=== PATIENT | male | born 1940 | race Caucasian/White ===

== ENCOUNTER 2024-04-11 18:19 | Inpatient (IN) | payer MEDICARE, OTHER, SELFPAY ==
[2024-04-11 12:28] LABS: % Basophils 0.6 % (0-2); % Eosinophils 0.7 % (0-6); % Immature Granulocytes 0.3 % (0-0.5); % Lymphocytes 11.6 % (20.5-51.1); % Monocytes 6.1 % (1.7-9.3); % Neutrophils 80.7 % (42.2-75.2); Absolute Basophils 0.1 10^3/uL (0-0.2); Absolute Eosinophils 0.1 10^3/uL (0-0.7); Absolute Lymphocytes 1.2 10^3/uL (1.2-3.4); Absolute Monocytes 0.6 10^3/uL (0.1-0.6); Absolute Neutrophils 8.2 10^3/uL (1.4-6.5); Hematocrit 36.2 % (39.0-52.0); Hemoglobin 12.3 g/dL (13.0-18.0); Mean Corpuscular Hgb 32.1 pg (27.0-31.0); Mean Corpuscular Volume 94.5 fL (80.0-94.0); Mean Platelet Volume 9.8 fL (7.4-10.4); Nucleated Red Blood Cells % 0 % (-); Platelet Count 243 10^3/uL (130-400); Red Blood Cell Count 3.83 10^6/uL (4.70-6.10); Red Cell Dist. Width 12.1 % (11.5-14.5); White Blood Cell Count 10.2 10^3/uL (4.8-10.8)
[2024-04-11 12:44] LABS: ALT (SGPT) 13 U/L (0-50); AST (SGOT) 22 U/L (17-59); Albumin 4.1 g/dl (3.5-5.0); Alkaline Phosphatase 105 U/L (38-126); Blood Urea Nitrogen 29 mg/dl (9-20); Calcium 9.3 mg/dl (8.4-10.2); Carbon Dioxide 25 mmol/L (22-30); Chloride 103 mmol/L (98-107); Glucose 220 mg/dl (70-99); Potassium 4.4 mmol/L (3.5-5.1); Sodium 137 mmol/L (135-145); Total Bilirubin 0.7 mg/dl (0.2-1.3); Total Protein 6.2 g/dl (6.3-8.2); eGFR > 60.00
[2024-04-11 12:59] LABS: Troponin I 0.398 ng/ml
[2024-04-11 13:44] VITALS: BP 120/74
[2024-04-11 13:52] VITALS: BMI 22.2
--- NOTE | 2024-04-11 15:05 | ED.GENMED ---
History of Present Illness
General
Chief Complaint: Chest Pain
Source: patient
Exam Limitations: none
Time Seen by Provider: 04/11/24 13:34
Nursing documentation reviewed up to this point in time: agreed with
History of Present Illness
History of Present Illness:
84-year-old male presenting to the emergency department today with concerns of chest pain off and on over the past week otherwise has has some associated nausea heavy sweating. Symptoms worsened today and has been persistent. Does have a long
history of heart disease has had a CABG and multiple stents in the past. Denies any recent trauma surgery immobilization, blood clots.
Review of Systems
Review of Systems
Allergies reviewed?: Yes
All Other Systems: ROS reviewed and negative except as documented in HPI and ROS
Phy Exam
Physical Exam
Physical Exam:
GENERAL: Alert , in no apparent distress
EYE: pupils equal and reactive
NECK: Supple, no significant adenopathy.
ENT: o/p clr, mmm.
CARDIAC: Regular rate and rhythm .
LUNGS: Clear breath sounds bilaterally, no acute respiratory distress, no wheezes/rales/rhonchi
ABDOMEN: Soft, without focal tenderness, no r/g, no cvat
NEUROLOGICAL: Alert and oriented, no focal neuro deficits
SKIN: Warm and dry, skin intact.
MUSCULOSKELETAL: No edema, well perfused.
PSYCH: Normal and appropriate interaction.
Scores
Heart Score for Chest Pain Patients
STEMI patient?: Not applicable
Course
Orders/Labs/Results
Orders:
Orders
04/11/24 11:58
Electrocardiogram (*1) Urgent
Reason for Study: Chest Pain
EKG- Treatment ONCE
04/11/24 12:07
CXR2 [CR Chest - 2 Views ] Urgent
Comment:
Reason For Exam: chest pain
04/11/24 12:13
Complete Blood Count/With Diff Urgent
Comprehensive Metabolic Panel Urgent
Troponin I Urgent
04/11/24 13:04
Electrocardiogram (*1) Urgent
Reason for Study: Chest Pain
EKG- Treatment ONCE
04/11/24 13:58
Aspirin 325 mg PO NOW STA
04/11/24 14:29
Troponin I Urgent
04/11/24 14:41
Heparin 4,000 units IV NOW STA
Nursing to Place Non Medication Order As Directed
Physician Order: PTT 6 hours after initial start of Heparin infusion
04/11/24 14:45
Heparin 93177 Units/250 ml 25,000 units in 250 ml IV PER PROTOCOL
Weight to be used for heparin protocol in kilograms (kg):: 72.212
Protocol:: Cardiac Tx/Acute Coronary
PTT Goal Range to be used:: PTT 73 to 111 seconds
Order type:: Initial
INITIAL Infusion Dose (UNITS/KG/hr) & then follow protocol:: 15 units/kg/hr
Infusion Dose in UNITS/hr & then follow protocol (UNITS/hr):: 1,100
INFUSION RATE in mL/hr & then follow protocol (mL/hr):: 11
PTT less than or equal to 64 seconds:: Increase rate by 200 units/hr (+ 2 mL/hr)
PTT 64.1 to 72.9 seconds:: Increase rate by 100 units/hr (+ 1 mL/hr)
PTT 73 to 111 seconds:: Target Range. No change in rate.
PTT 111.1 to 130.9 seconds:: Decrease rate by 100 units/hr (- 1 mL/hr)
PTT 131 to 199.9 seconds:: HOLD for 1 hr. Then decrease rate by 200 units/hr (- 2 mL/hr)
PTT greater than or equal to 200 seconds:: HOLD for 2 hrs & Notify Provider. Then decrease by 200 units/hr (-
2 mL/hr)
Lab follow-up:: Each change, PTT q6h until 2 consecutive are therapeutic. Then PTT
daily.
04/11/24 15:14
Nitroglycerin Sublingual [Nitrostat (Sublingual)] 0.4 mg SL [id number] PRN
04/11/24 15:31
PTT Urgent
Comment: Obtain baseline before beginning heparin infusion if not already collected
04/11/24 15:45
Echo 2D MMode Color/Doppler [Echo 2D MMode Color/Doppler] Stat
Reason for Study: Chest pain, abnormal trop
Cardiology Consult: Marcos Cao
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
04/11/24 16:30
Nitroglycerin 100 mg/250 ml [Nitroglycerin Premix] 100 mg in 250 ml IV PER PROTOCOL
Initial dose in mcg/min, then titrate:: 5
Titrate to keep:: Chest Pain Free
Titrate by mcg/min:: 5 mcg/min, may increase by 10 mcg/min if dose > 20 mcg/min
Frequency of titrations (minutes):: every 3-5 minutes
Maximum dose in mcg/min:: 200
Begin to taper infusion when:: Remained at goal for 2hrs
Taper by mcg/min:: 5 mcg/min
Frequency of taper (minutes) if patient maintains goal:: 30
Taper to off?: Yes
If infusion off & no longer maintaining goal:: Contact Provider
Abnormal Lab Results
04/11/24 04/11/24
12:13 14:29
RBC 3.83 L 10^6/uL
(4.70-6.10)
Hgb 12.3 L g/dL
(13.0-18.0)
Hct 36.2 L %
(39.0-52.0)
MCV 94.5 H fL
(80.0-94.0)
MCH 32.1 H pg
(27.0-31.0)
Absolute Neuts (auto) 8.2 H 10^3/uL
(1.4-6.5)
Neutrophils % 80.7 H %
(42.2-75.2)
Lymphocytes % 11.6 L %
(20.5-51.1)
BUN 29 H mg/dl
(9-20)
Glucose 220 H mg/dl
(70-99)
Troponin I 0.398 H* ng/ml 1.570 H* D ng/ml
Total Protein 6.2 L g/dl
(6.3-8.2)
04/11/24 12:13
04/11/24 12:13
Vital Signs
Initial and Last Documented VS:
Initial Vital Signs
Temp Pulse Resp Pulse Ox
98.1 F 71 16 99
04/11/24 12:04 04/11/24 12:04 04/11/24 12:04 04/11/24 12:04
Last Documented Vital Signs
Temp Pulse Resp BP Pulse Ox
98.1 F 63 10 120/74 99
04/11/24 12:04 04/11/24 13:45 04/11/24 13:45 04/11/24 13:44 04/11/24 12:04
MDM/Problems Addressed
MDM/Problems Addressed:
84-year-old male presenting to the emergency department today with concerns of chest pain worsened today off and on over the past week. Does have a long history of heart disease. On arrival EKG without specific emergent findings but troponin
elevated to 0.398, cardiology immediately consulted after review of the case. Repeated Trope 1.57. Started on heparin. Additionally given dose of nitro. He claims that he seems to have resolution of symptoms after receiving a dose of nitro.
Patient then seen by interventional cardiology requesting nitro drip. This was ordered and will be started.
*Critical Care Note
Total Time (30-74mins, 75-104mins- exclusive of procedures): Not Applicable
ED Attending Note
-
Portions of this chart may have been created with voice recognition software.� Occasional wrong word or��sound alike� substitutions may have occurred due to the inherent limitations of voice recognition software.
Discharge Plan
Departure
Patient Disposition: Admit
Date of Disposition: 04/11/24
Time of Disposition: 16:21
Admit to: IMU
Admit to doctor: Bella
Presentation/result/management discussed w/ accepting MD/DO: Hospitalist
Patient with high blood pressure during this ER visit?: No
Condition: Fair
Covid-19: Not Applicable
Discharge Problem:
Non-ST elevation [place] (NSTEMI)
Prescriptions:
No Action
losartan 50 mg Tablet
50 mg PO BID
metformin 500 mg Tablet
500 mg PO QPM
bicalutamide 50 mg Tablet
50 mg PO HS
donepezil 10 mg Tablet
10 mg PO HS
cyanocobalamin (vitamin B-12) 1,000 mcg Tablet
1,000 mcg PO DAILY
clopidogrel [Plavix] 75 mg Tablet
75 mg PO QPM
amlodipine [Norvasc] 5 mg Tablet
5 mg PO DAILY
allopurinol 100 mg Tablet
100 mg PO DAILY
aspirin 81 mg Tablet,Delayed Release (Dr/Ec)
81 mg PO DAILY
acetaminophen [Tylenol Extra Strength] 500 mg Tablet
1,000 mg PO DAILYPRN PRN (Reason: mild pain)
ascorbic acid (vitamin C) [Vitamin C] 500 mg Tablet
500 mg PO DAILY
naproxen sodium [Aleve] 220 mg Tablet
220 mg PO BIDPRN PRN (Reason: mild pain)
zolpidem [Ambien] 5 mg Tablet
2.5 mg PO HS
metoprolol succinate [Toprol XL] 25 mg Tablet Extended Release 24 Hr
25 mg PO BID
alfuzosin 10 mg Tablet Extended Release 24 Hr
10 mg PO HS
cholecalciferol (vitamin D3) [Vitamin D3] 25 mcg (1,000 unit) Tablet
25 mcg PO DAILY
omega 4-esu-dei-fish oil [Fish Oil] 1,000 (120-180) mg Capsule
1 cap PO DAILY
turmeric 400 mg Capsule
400 mg PO DAILY
Interventions
Interventions:
*Risk Screen - Suicide Last Done: 04/11/24 12:04
*Neglect/Abuse Screening Last Done: 04/11/24 12:04
ED- Cardiac Assessment Last Done: 04/11/24 15:00
Discharge Date and Time
Print Language: MARSHALLESE
[2024-04-11] MEDS: HEPARIN 4000 UNITS IV (15:09)
[2024-04-11] MEDS: ASPIRIN 325 MG PO (15:09)
[2024-04-11] MEDS: HEPARIN 25000 UNITS/250 ML IV (15:25)
--- NOTE | 2024-04-11 15:27 | CON.CAR ---
Addendum entered and electronically signed by Marcos Cao MD 04/11/24 17:56:
This is a 83-year-old gentleman with a past medical history notable for multiple coronary stents and history of coronary artery bypass grafting with reported CONTE-LAD and [id number]. He reports multiple stents by Dr. Devaguhn Crook and most
recent stenting by Dr. Jose Manuel Pittman. He has a reported history of a large abdominal and thoracic aortic aneurysm that is being followed at the [facility] and reported history of a pulmonary mass that is being followed at the
[facility]. (I spent approximately 1 hour looking through his old records on his medical portal and was able to obtain additional information as listed below). He has known carotid artery disease with prior TIA/CVA. Chronic back
discomfort.
He presents to [facility] for his first visit ever with a several week history of waxing and waning substernal chest tightness which became more persistent. He reports several days ago he noticed some discomfort when bringing the garbage
cans up from the street to his house. Today he noticed some symptoms at rest but became chest pain-free and is currently chest pain-free in the emergency room. His troponin was noted to be mildly elevated initially measuring 0.398 and increasing
to 1.570 ng/mL. The patient does know his history reasonably well but it is very difficult to get a linear story.
Cardiac and Pulmonary Records I was able to obtain
-10/06/2023: Ambulatory ECG 13 days, 17hrs. Sinus rhythm. No afib, PAC: 3.6% PVC: below 1%, Intermittent bundle branch,
-09/17/2023: CT angio chest/abdomen: Abdominal aortic aneurysm measuring up to 5.0 cm with moderate mural thrombus and multiple penetrating atherosclerotic ulcers in the thoracic aorta. Ascending aortic aneurysm measuring 4.6 and severe
atherosclerotic disease involving the left common iliac with up to 70% stenosis. There is right middle lobe groundglass nodular appearing mass
-09/17/2023: LIONEL: Right le.15, left le.07
-07/20/2023: Echo: [facility]: LV: Normal size and function. EF 60-65%. RV: Normal, LA: Normal, RA: Normal, MV: Mild MAC. No MR, AV: Mild sclerosis. No stenosis. No AI. TV: No TR, AO: Mildly dilated ascending aorta measuring 4.1 cm
-01/10/2023: Carotid ultrasound: 50-69% bilateral ICA right greater than left
-02/12/2020: PFTs: FEV1: 2.06 (71%, FVC: 2.69 (66%), T%, DLCO:'s 60%. Findings are consistent with moderate restriction with no significant obstructive pulmonary disease
Past Medical History:
-Coronary artery disease. Patient reports multiple coronary stents by Dr. Devaughn Crook and Jose Manuel knight at [place].
-History of coronary artery bypass surgery in 11/14/2006: CONTE-LAD, QFS-nlcyhfmo-TOM vs SVG-Diag and SVG-PDA (no records)
-Abdominal aortic aneurysm: Dr. Escalera at [facility]
-Ascending aortic aneurysm: Dr. Norman at [facility]
-FDG avid pulmonary nodule consistent with adenocarcinoma of the lung: Reasonably stable by CT imaging dating back to 11/04/2019 FDG uptake was less than blood pool suggestive of adenocarcinoma
-Carotid stenosis
-Diabetes
-Multiple back surgeries and chronic back discomfort
-Parkinson's disease
-Mixed hyperlipidemia with intolerance to statins in the past
-History of TIA/CVA
-Prostate cancer
-History of spontaneous pneumothoraces
-Diet-controlled diabetes
-Obstructive sleep apnea
Physical exam
GEN: AAO x 3. No acute distress. He is lying in bed comfortably and reading his book. He states that he has chronic back discomfort but no chest discomfort
HEENT: NC/AT, sclera are anicteric,
NECK: Supple. Normal JVP
LUNGS: Clear to bases bilaterally. No wheezing or rhonchi
CV: Regular rate and rhythm. 03/17 crescendo decrescendo murmur upper sternal border. Normal S1/S2.
ABD : Bruit. Bowel sounds present.
EXT: No CCE. DP AND PT pulses palpable bilaterally
NEURO: No focal neurologic deficits
RECOMMENDATIONS:
- Currently chest pain free
- Continue aspirin and clopidogrel
- Will trend serial troponin and obtain fasting lipids: He is currently not on statin therapy and reported muscle aches but may try Crestor 5 mg M/W/F plus ongoing medication
- Echocardiogram today give murmur of and to assess LVEF
- Awaiting records on pulmonary nodule and assessment of abdominal aorta to determine if any treatment is impending
- I reached out to [facility] to see if we can get images transferred to [place] as he will likely need coronary angiography predischarge. It would be nice to know prior anatomy
- I suspect he may need coronary angiography
.
(I spent 85-90 minutes obtaining and reviewing records from [place], [place], [place], and calling [place] to see if we could have images transferred).
Original Note:
Consultation
Consultation Request
Date/Time Consultation Requested: 04/11/2024
Date/Time Consultation Performed: 04/11/2024
Requesting Provider: Nicolas Celis PA-C
Performing Provider: Sonja Christianson PA-C for Dr. Cao
Reason for Consultation: Chest pain, abnormal troponin
Medical History
-
History of Present Illness:
Patient is an 83-year-old male with past medical history significant for CABG x 3 11/2006, multiple coronary interventions which he reports he has 10 or 11 stents with last intervention 3 or 4 years ago, hypertension, hyperlipidemia, diabetes, TIA,
prostate cancer with hormone therapy, pneumothorax, GERD, 'brain bleed after traumatic fall several years ago', DVT, AAA and recent diagnosis of lung cancer on PET scan who presents to [place] emergency department 04/11/2024 with complaints of
back and chest discomfort as well as shortness of breath. Patient followed with Dr. Peterson at [facility] but most recently with Dr. Buzz Quintanilla at [facility] for cardiology care as well as Dr. Bernabe Norman of CT surgery [place]
and Dr. Escalera of vascular surgery for AAA ([place]). He reports he has had intermittent chest and back discomfort for several days when he goes out in the cold. However this morning he reports his chest tightness and shortness of breath were more
persistent and occurred with minimal activity. He reports he took 2 Tylenol and 2 Naprosyn thinking it was from his chronic back pain however he got nauseous developed dry heaves became diaphoretic had chest pain and shortness of breath and decided
to come to [facility] emergency department for treatment. Initial troponin was 0.398 and EKG showed sinus rhythm with nonspecific ST-T wave abnormality. Repeat troponin 1.57 and patient continues to have mild chest discomfort. He started
on heparin drip with bolus and given aspirin 325 mg plus sublingual nitroglycerin with some improvement. Patient now on nitroglycerin drip with almost complete resolution of chest pain. Patient is maintained on Plavix as outpatient. He has a
history of statin intolerance and has used Zetia in the past.
Past medical history:
CAD
RCA stent 1994
2 stents 1995, 1 stent 2000, 1 stent 2002, 2 stents 2003
Status post CABG x 3 11/2006 (CONTE-LAD, SVG-PDA, SVG->Diag)
Multiple coronary interventions; PCI in , last STEMI/PCI x 2019 cath was [facility]
Hypertension
Hyperlipidemia
Statin intolerance
Type 2 diabetes
Ascending aortic aneurysm (4.6 cm; follows with Dr. Bernabe Norman)
AAA (up to 5 cm with moderate ulcerated mural thrombus; follows with Dr. Escalera)
Remote DVT
Prostate cancer with hormone therapy
History of spontaneous pneumothorax 2006
GERD
TIA
Recent diagnosis of lung cancer
Obstructive sleep apnea on CPAP
Spinal stenosis with prior laminectomy
Carotid stenosis
SDH after traumatic fall
Past Medical History
Past Medical History: Other (See HPI)
Past Surgical History: Orthopedic (Laminectomy with rate cage fusion 1998, left shoulder surgery 2005) and Other (Partial pleurectomy 1962, left inguinal hernia repair 1998,)
Social History
Tobacco: Non-Smoker
Alcohol: None
Drug: None
Personal:
Living: With Family
Family History
Family History: CAD (Father) and Cancer (Mother breast cancer)
Allergies / Home Medications
Allergy/AdvReac Type Severity Reaction Status Date / Time
lactose Allergy Unknown Verified 04/11/24 12:06
�Medication �Instructions �Recorded �Confirmed �Type
acetaminophen 500 mg tablet 1,000 mg PO DAILYPRN PRN mild pain 04/11/24 04/11/24 History
(Tylenol Extra Strength)
alfuzosin 10 mg tablet,extended 10 mg PO HS 04/11/24 04/11/24 History
release 24 hr
allopurinol 100 mg tablet 100 mg PO DAILY 04/11/24 04/11/24 History
amlodipine 5 mg tablet (Norvasc) 5 mg PO DAILY 04/11/24 04/11/24 History
ascorbic acid (vitamin C) 500 mg 500 mg PO DAILY 04/11/24 04/11/24 History
tablet (Vitamin C)
aspirin 81 mg tablet,delayed 81 mg PO DAILY 04/11/24 04/11/24 History
release
bicalutamide 50 mg tablet 50 mg PO HS 04/11/24 04/11/24 History
cholecalciferol (vitamin D3) 25 25 mcg PO DAILY 04/11/24 04/11/24 History
mcg (1,000 unit) tablet (Vitamin
D3)
clopidogrel 75 mg tablet (Plavix) 75 mg PO QPM 04/11/24 04/11/24 History
cyanocobalamin (vitamin B-12) 1,000 mcg PO DAILY 04/11/24 04/11/24 History
1,000 mcg tablet
donepezil 10 mg tablet 10 mg PO HS 04/11/24 04/11/24 History
losartan 50 mg tablet 50 mg PO BID 04/11/24 04/11/24 History
metformin 500 mg tablet 500 mg PO QPM 04/11/24 04/11/24 History
metoprolol succinate 25 mg 25 mg PO BID 04/11/24 04/11/24 History
tablet,extended release 24 hr
(Toprol XL)
naproxen sodium 220 mg tablet 220 mg PO BIDPRN PRN mild pain 04/11/24 04/11/24 History
(Aleve)
omega 6-uxs-bux-fish oil 1,000 mg 1 cap PO DAILY 04/11/24 04/11/24 History
(120 mg-180 mg) capsule (Fish Oil)
turmeric 400 mg capsule 400 mg PO DAILY 04/11/24 04/11/24 History
zolpidem 5 mg tablet (Ambien) 2.5 mg PO HS 04/11/24 04/11/24 History
Review of Systems
-
History Source: Patient and Coordinating Provider (Cardiology at [facility])
All other systems: Negative unless noted
Physical Exam
Vital Signs
Temp Pulse Resp BP Pulse Ox
98.1 F 63 10 120/74 99
04/11/24 12:04 04/11/24 13:45 04/11/24 13:45 04/11/24 13:44 04/11/24 12:04
GEN: No distress, awake, Ox3
HEENT: supple, anicteric, mmm
LUNGS: CTA, no wheezes/rales
CV: Reg, S1/S2, 1/6 syst LSB murmur, no rub or gallop
ABD: soft, BS+, NT/ND
EXT: No edema, clubbing or cyanosis
NEURO: Gross non-focal
SKIN: No rash, warm, dry, pink
Lab Results
04/11/24 12:13
04/11/24 12:13
Troponin I 1.570 ng/ml H* D 04/11/24 14:29
Impression / Plan
-
PCP: Dr. Gabriella Mireles but most recently, Dr. Antonella Sanders, [facility]
Exercise Manager: Dr. Marshall[facility] most recently Dr. Buzz Quintanilla at [facility]
Impression:
Presents 04/11/2024 with chest tightness, shortness of breath, back pain
NSTEMI
Abnormal troponin
CAD
RCA stent 1994
2 stents 1995, 1 stent 2000, 1 stent 2002, 2 stents 2003
Status post CABG x 3 11/2006 (CONTE-LAD, SVG-PDA, SVG->Diag)
Multiple coronary interventions; PCI in , last STEMI/PCI x 2019 cath was [facility]
Hypertension
Hyperlipidemia
Statin intolerance
Type 2 diabetes
Ascending aortic aneurysm (4.6 cm; follows with Dr. Bernabe Norman)
AAA (up to 5 cm with moderate ulcerated mural thrombus; follows with Dr. Escalera)
Remote DVT
Prostate cancer with hormone therapy
History of spontaneous pneumothorax 2006
GERD
TIA
Recent diagnosis of lung cancer
Obstructive sleep apnea on CPAP
Spinal stenosis with prior laminectomy
Carotid stenosis
SDH after traumatic fall
Echo 07/20/2023 ([facility]) EF 60 to 65%. Stage I DD. Normal RV size and function. Mild MAC, mild aortic sclerosis without stenosis. Ascending aorta mildly dilated at 4.1 cm
Lexiscan nuclear stress test 07/20/2023 ([facility]): No perfusion defects, LV perfusion is negative for ischemia, EF 63%
14-day ambulatory monitor completed 10/20/2023: Sinus rhythm, heart rate range 39 to 174 bpm with average 62 bpm. No atrial fibrillation, advanced heart block or prolonged pauses. Occasional PVCs 3.6%, PVC less than 1%. Intermittent bundle branch
block. 19 supraventricular tachycardia runs with fastest lasting 6 beats at max heart rate 174 bpm, longest 18 beats with average heart rate of 120 bpm
Lower extremity ABIs 09/17/2023: Right LIONEL 1.15, left LIONEL 1.07
Carotid duplex 01/10/2023 ([facility]): 50 to 69% bilateral internal carotid artery stenosis right greater than left
Plan:
-Presents 04/11/2024 with chest tightness, shortness of breath, back pain inpatient with multivessel coronary artery disease with prior CABG x 3 and numerous coronary interventions most recently in 2019 at [facility]
-Abnormal troponin initially 0.398, repeat 1.57 concerning for NSTEMI. Continue to monitor and trend to peak
-EKG shows sinus rhythm with nonspecific ST-T wave abnormality, old inferior MS
-Patient was provided aspirin, heparin bolus and drip in emergency department. Given sublingual nitroglycerin followed by nitro drip with significant improvement of chest pain. Continue to uptitrate nitroglycerin until pain-free as blood pressure
allows
-Resume daily aspirin in addition to Plavix which patient was taken as outpatient
-Check urgent echocardiogram to look for new wall motion abnormalities.
-Will likely need catheterization timing to be determined by response to nitroglycerin
-Check lipids in am. Per review of outpatient records patient has statin intolerance and has taken Zetia however had allover body pain and had stopped it recently. Unclear if patient has ever tried PCSK9 inhibitor
-Known history of hypertension on metoprolol, losartan would continue and monitor trend blood pressure
-History of diabetes maintained on metformin, check hemoglobin A1c in a.m.
-Obstructive sleep apnea utilizes CPAP at home. Would benefit from CPAP here
I spent greater than 78 minutes with [id number] encounter, reaching out to numerous medical providers that patient has seen as an outpatient obtaining records, reviewing records, treatment plan and decision and documentation
HPI 04/11/2023:
Patient is an 83-year-old male with past medical history significant for CABG x 3 11/2006, multiple coronary interventions which he reports he has 10 or 11 stents with last intervention 3 or 4 years ago, hypertension, hyperlipidemia, diabetes, TIA,
prostate cancer with hormone therapy, pneumothorax, GERD, 'brain bleed after traumatic fall several years ago', DVT, AAA and recent diagnosis of lung cancer on PET scan who presents to [facility] emergency department 04/11/2024 with complaints of
back and chest discomfort as well as shortness of breath. Patient followed with Dr. Peterson at [facility] but most recently with Dr. Buzz Quintanilla at [facility] for cardiology care as well as Dr. Bernabe Norman of CT surgery [place]
and Dr. Escalera of vascular surgery for AAA ([place]). He reports he has had intermittent chest and back discomfort for several days when he goes out in the cold. However this morning he reports his chest tightness and shortness of breath were more
persistent and occurred with minimal activity. He reports he took 2 Tylenol and 2 Naprosyn thinking it was from his chronic back pain however he got nauseous developed dry heaves became diaphoretic had chest pain and shortness of breath and decided
to come to [facility] emergency department for treatment. Initial troponin was 0.398 and EKG showed sinus rhythm with nonspecific ST-T wave abnormality. Repeat troponin 1.57 and patient continues to have mild chest discomfort. He started
on heparin drip with bolus and given aspirin 325 mg plus sublingual nitroglycerin with some improvement. Patient now on nitroglycerin drip with almost complete resolution of chest pain. Patient is maintained on Plavix as outpatient. He has a
history of statin intolerance and has used Zetia in the past.
Data Reviewed
-
EKG: Report Reviewed by me, Discussed with Physician, Discussed with Nurse and Discussed with Patient
Radiology: Report Reviewed by me, Discussed with Physician, Discussed with Nurse and Discussed with Patient
Labs: Labs Reviewed by me, Discussed with Physician, Discussed with Nurse and Discussed with Patient
Old Records: Reviewed
Total Time Spent with Patient (in minutes): 78
[2024-04-11 15:51] LABS: APTT 24.7 Sec (23.4-35.0)
--- NOTE | 2024-04-11 17:39 | HPS.HSE ---
Family Physician
-
Family Physician: PHYSICIAN PRIVATE
Chief Complaint
-
Chest pain
History of Present Illness
84-year-old man with concerns of chest pain off and on over the past week. He otherwise has has some associated nausea heavy sweating. The Symptoms worsened today and have been persistent. He has a long history of heart disease and has had a CABG
and multiple stents in the past. He Denies any recent trauma surgery immobilization, blood clots. At the time of my interview, he was pain free and comfortable. He had been seen by cardiology and was on a heparin gtt.
Medical History
Past Medical History
Past Medical History: Reports Other
Additional Past Medical History:
angina
essential hypertension
Gout
type II diabetes
acid reflux
urinary incontinence
dementia
Appendectomy
pleurectomy
hernia
spinal stenosis surgery
stroke
subdural hematoma
CAD
RCA stent 1994
2 stents 1995, 1 stent 2000, 1 stent 2002, 2 stents 2003
Status post CABG x 3 11/2006 (CONTE-LAD, SVG-PDA, SVG->Diag)
Multiple coronary interventions; PCI in , [facility] STEMI/[facility] x 2019 [facility]
Hyperlipidemia
Statin intolerance
Ascending aortic aneurysm (4.6 cm; follows with Dr. Bernabe Norman)
AAA (up to 5 cm with moderate ulcerated mural thrombus; follows with Dr. Escalera)
Remote DVT
Prostate cancer with hormone therapy
History of spontaneous pneumothorax 2006
GERD
TIA
Recent diagnosis of lung cancer
Obstructive sleep apnea on CPAP
Spinal stenosis with prior laminectomy
Carotid stenosis
Past Surgical History: Reports Other
Additional Past Surgical History:
See above
Social History
Tobacco: Non-smoker
Alcohol: None
Drug: None
Employment: Retired
Family History
Family History: Not pertinent
Allergies / Home Medications
Allergies reflects when Allergies were last updated in [employer].
Home Medications with original date entered in [employer]
Allergy/Medication List:
Allergies
Allergy/AdvReac Type Severity Reaction Status Date / Time
lactose Allergy Unknown Verified 04/11/24 12:06
Home Medications
acetaminophen 500 mg tablet (Tylenol Extra Strength) 1,000 mg PO DAILYPRN PRN mild pain 04/11/24
alfuzosin 10 mg tablet,extended release 24 hr 10 mg PO HS 04/11/24
allopurinol 100 mg tablet 100 mg PO DAILY 04/11/24
amlodipine 5 mg tablet (Norvasc) 5 mg PO DAILY 04/11/24
ascorbic acid (vitamin C) 500 mg tablet (Vitamin C) 500 mg PO DAILY 04/11/24
aspirin 81 mg tablet,delayed release 81 mg PO DAILY 04/11/24
bicalutamide 50 mg tablet 50 mg PO HS 04/11/24
cholecalciferol (vitamin D3) 25 mcg (1,000 unit) tablet (Vitamin D3) 25 mcg PO DAILY 04/11/24
clopidogrel 75 mg tablet (Plavix) 75 mg PO QPM 04/11/24
cyanocobalamin (vitamin B-12) 1,000 mcg tablet 1,000 mcg PO DAILY 04/11/24
donepezil 10 mg tablet 10 mg PO HS 04/11/24
losartan 50 mg tablet 50 mg PO BID 04/11/24
metformin 500 mg tablet 500 mg PO QPM 04/11/24
metoprolol succinate 25 mg tablet,extended release 24 hr (Toprol XL) 25 mg PO BID 04/11/24
naproxen sodium 220 mg tablet (Aleve) 220 mg PO BIDPRN PRN mild pain 04/11/24
omega 0-nmk-nkv-fish oil 1,000 mg (120 mg-180 mg) capsule (Fish Oil) 1 cap PO DAILY 04/11/24
turmeric 400 mg capsule 400 mg PO DAILY 04/11/24
zolpidem 5 mg tablet (Ambien) 2.5 mg PO HS 04/11/24
Review of Systems
-
History Source: Patient
A 12 point ROS was completed and negative except as noted: Yes
Physical Exam
Vital Signs
Vital Signs
Temp Pulse Resp BP Pulse Ox
98.1 F 63 10 120/74 99
04/11/24 12:04 04/11/24 13:45 04/11/24 13:45 04/11/24 13:44 04/11/24 12:04
Physical Exam
General: Well Developed, Well Nourished, No Apparent Distress and Comfortable
HEENT: Nose Appears Normal and Ears Appear Normal
Respiratory: Clear
Cardiac: S1/S2 and Regular Rhythm
GI: Soft, Non Tender and Non Distended
Musculoskeletal: No Clubbing, No Cyanosis and No Edema
Skin: Warm and Dry
Neuro: Awake, Alert, Oriented and AO x 3
Psych: Calm
Laboratory Results
-
04/11/24 12:13
04/11/24 12:13
Laboratory Results
APTT 24.7 Sec (23.4-35.0) 04/11/24 15:31
Total Bilirubin 0.7 mg/dl (0.2-1.3) 04/11/24 12:13
AST 22 U/L (17-59) 04/11/24 12:13
ALT 13 U/L (0-50) 04/11/24 12:13
Alkaline Phosphatase 105 U/L (38-126) 04/11/24 12:13
Troponin I 1.570 ng/ml H* D 04/11/24 14:29
Data Reviewed
-
Lab Data: Labs Reviewed by me
Impression/Plan
-
IMPRESSION:
83 man with a NSTEMI. Troponin 1.570. Patient seen by cardiology and recs provided. Please see full cardiology note. Specifically recs:
'Continue to monitor troponin and trend to peak
Continue to uptitrate nitroglycerin until pain-free as blood pressure allows
Resume daily aspirin in addition to Plavix which patient was taken as outpatient
Check urgent echocardiogram to look for new wall motion abnormalities.
Check lipids in am.
continue and monitor trend blood pressure
check hemoglobin A1c in a.m.
Would benefit from CPAP here'
PLAN:
1. NSTEMI - now pain free. Seen by cardiology.
Follow cardiology recs stated above
2. Complex PMH with 23 diagnoses. Continue home meds
Full code
Heparin gtt will take care of DVTp
[2024-04-11 17:40] VITALS: BP 136/88
[2024-04-11 19:01] VITALS: BP 126/68
[2024-04-11 20:00] VITALS: BP 109/93
[2024-04-11] MEDS: CRESTOR 10 MG PO (20:00)
[2024-04-11] MEDS: COZAAR 50 MG PO (20:01)
[2024-04-11] MEDS: TOPROL XL 25 MG PO (20:01)
[2024-04-11] MEDS: FLUSH (NSS) 1 FLUSH IV (20:06)
[2024-04-11 20:20] VITALS: BMI 22.4
[2024-04-11 20:21] VITALS: BP 152/91
[2024-04-11] MEDS: CASODEX 50 MG PO (21:37)
[2024-04-11] MEDS: NAPROSYN 250 MG PO (21:37)
[2024-04-11] MEDS: FLOMAX 0.4 MG PO (21:39)
[2024-04-11] MEDS: GLUCOPHAGE 500 MG PO (21:39)
[2024-04-11] MEDS: PLAVIX 75 MG PO (21:39)
[2024-04-11] MEDS: ARICEPT 10 MG PO (21:39)
[2024-04-11] MEDS: NSS 1000 IV (21:40)
[2024-04-11] MEDS: AMBIEN 2.5 MG PO (21:40)
[2024-04-11 22:19] LABS: APTT 52.3 Sec (23.4-35.0)
[2024-04-11 22:33] VITALS: BP 102/60
--- NOTE | 2024-04-12 02:14 | PTCARENOTE ---
Received pt from ER into 2250. AAOx3 SR on the monitor VSS on Hep gtt @ 1100. fer cp Critical lab Troponin 16.100 Geoff ALFARO aware.
[2024-04-12 03:05] VITALS: BP 112/71
[2024-04-12 05:13] LABS: Hematocrit 32.3 % (39.0-52.0); Hemoglobin 10.9 g/dL (13.0-18.0); Mean Corp Hgb Conc. 33.7 g/dL (33.0-37.0); Mean Corpuscular Hgb 31.6 pg (27.0-31.0); Mean Corpuscular Volume 93.6 fL (80.0-94.0); Mean Platelet Volume 10.2 fL (7.4-10.4); Platelet Count 212 10^3/uL (130-400); Red Blood Cell Count 3.45 10^6/uL (4.70-6.10); White Blood Cell Count 7.5 10^3/uL (4.8-10.8)
[2024-04-12 05:24] LABS: APTT 86.5 Sec (23.4-35.0)
[2024-04-12 05:31] LABS: ALT (SGPT) 16 U/L (0-50); AST (SGOT) 88 U/L (17-59); Albumin 3.7 g/dl (3.5-5.0); Alkaline Phosphatase 91 U/L (38-126); Blood Urea Nitrogen 29 mg/dl (9-20); Calcium 8.4 mg/dl (8.4-10.2); Carbon Dioxide 23 mmol/L (22-30); Chloride 107 mmol/L (98-107); Estimated Creatinine Clearance 71 ml/min; Glucose 119 mg/dl (70-99); HDL Cholesterol 51 mg/dl; LDL Cholesterol, Calculated 77 mg/dl; Potassium 4.2 mmol/L (3.5-5.1); Sodium 139 mmol/L (135-145); Total Bilirubin 0.5 mg/dl (0.2-1.3); Total Cholesterol 152 mg/dl (50-199); Total Protein 6.1 g/dl (6.3-8.2); Triglyceride 123 mg/dl (10-149); Very Low Density Lipoprotein 24 mg/dl (0-30); eGFR > 60.00
[2024-04-12 08:09] VITALS: BP 136/75
--- NOTE | 2024-04-12 08:48 | W.PN.CARDCBS ---
Today's Communication / Plan
-
Continue management of unstable coronary syndrome/acute non-ST segment elevation myocardial infarction. He is currently pain-free, continue IV heparin at least another 24 hours as we continue to trend troponins.
Will eventually need to make a decision on coronary angiography.
Impression / Plan
-
PCP: Dr. Gabriella Mireles but most recently, Dr. Antonella Sanders, [facility]
Railroad Auditor: Dr. Marshall, [facility] however most recently Dr. Buzz Quintanilla at [facility]
Impression:
Presents 04/11/2024 with chest tightness, shortness of breath, back pain
NSTEMI
Abnormal troponin
CAD
RCA stent 1994
2 stents 1995, 1 stent 2000, 1 stent 2002, 2 stents 2003
Status post CABG x 3 11/2006 (CONTE-LAD, SVG-PDA, SVG->Diag)
Multiple coronary interventions; PCI in , last STEMI/PCI x 3 2019 cath was [facility]
Hypertension
Hyperlipidemia
Statin intolerance
Type 2 diabetes
Ascending aortic aneurysm (4.6 cm; follows with Dr. Bernabe Norman)
AAA (CTA 09/17/23: up to 5 cm with moderate ulcerated mural thrombus; follows with Dr. Radha Escalera and Dr Bernabe Norman)
Recommendation from his evaluation at [facility] was to repeat CT scan in 1 year, trigger for surgery would be >5.5 cm or growth > 0.5 cm)
Remote DVT
Prostate cancer with hormone therapy
History of spontaneous pneumothorax 2006
GERD
TIA
Recent diagnosis of lung cancer
Obstructive sleep apnea on CPAP
Spinal stenosis with prior laminectomy
Carotid stenosis
SDH after traumatic fall
ECHO 04/11/24 ([place]): Normal LV size and function, LVEF 60-65%. There is inferior apex and septal apex hypokinesis/akinesis. There is mild AI, mild TR. Mildly dilated aortic root, 4.4 cm at the sinus Valsalva
Echo 07/20/2023 ([facility]) EF 60 to 65%. Stage I DD. Normal RV size and function. Mild MAC, mild aortic sclerosis without stenosis. Ascending aorta mildly dilated at 4.1 cm
Lexiscan nuclear stress test 07/20/2023 ([facility]): No perfusion defects, LV perfusion is negative for ischemia, EF 63%
14-day ambulatory monitor completed 10/20/2023: Sinus rhythm, heart rate range 39 to 174 bpm with average 62 bpm. No atrial fibrillation, advanced heart block or prolonged pauses. Occasional PVCs 3.6%, PVC less than 1%. Intermittent bundle branch
block. 19 supraventricular tachycardia runs with fastest lasting 6 beats at max heart rate 174 bpm, longest 18 beats with average heart rate of 120 bpm
Lower extremity ABIs 09/17/2023: Right LIONEL 1.15, left LIONEL 1.07
Carotid duplex 01/10/2023 ([facility]): 50 to 69% bilateral internal carotid artery stenosis right greater than left
PET CT scan February 04, 2024: Right middle lobe groundglass nodular measuring up to 2.9 cm, unchanged since 02/20/2023. Additionally an outside report documents this lesion measuring up to 2.9 cm dating back to at least November 04, 2019. There is
no identifiable solid component to today's examination, likely due to differences in technique. This lesion demonstrates FDG uptake less than blood pool in keeping with an adenocarcinoma spectrum lesion. Recommendation is continued surveillance
with chest CT until 5 years stability has been reached.
Plan:
Presents 04/11/2024 with chest tightness, shortness of breath, back pain inpatient with multivessel coronary artery disease with prior CABG x 3 and numerous coronary interventions most recently in 2019 at [facility]
Acute NSTEMI with known complex CAD history
He is currently pain-free, off NTG drip.
He is hemodynamically stable
Troponin initially 0.398, Then 1.57 -> 9.3 -> 16.1 -> 16.4.
ECG sinus rhythm with nonspecific ST-T wave abnormality inferiorly, unchanged on serial ECGs
ECHO 04/11 finds inferior apex and septal apex hypokinesis/akinesis (no prior echo in our system)
-Continue IV heparin
-Continue Toprol-XL 25 mg twice daily
-Continue aspirin 81 mg daily and Plavix 75 mg daily
-Continue losartan 50 mg twice daily
-Continue rosuvastatin 10 mg daily
LDL cholesterol 77, total cholesterol 152, HDL cholesterol 51, triglycerides 123
(outpatient records indicates possible statin and Zetia however had allover body pain and had stopped it recently. Unclear if patient has ever tried PCSK9 inhibitor)
He would likely benefit from evaluation of his coronary anatomy and possible intervention prior to discharge
Will continue antianginal therapy with goal of keeping him pain free and discuss plans further with interventional cardiology
Vascular/aortic disease
Ascending aortic aneurysm 4.6 cm, AAA 5 cm with moderate ulcerated mural thrombus by CTA 09/17/23
He tells me that at recent visit with Dr. Radha Escalera approximately 1 week ago abdominal aortic ultrasound suggested growth of the AAA
He is scheduled for repeat CTA at [facility] next week
Anemia
Follow hemoglobin closely as he has been maintained on IV heparin along with dual antiplatelet therapy in the setting of acute coronary syndrome
Essential hypertension
Blood pressure is currently well-controlled.
Maintain Toprol-XL 25 mg twice daily
Maintain losartan 50 mg twice daily
Diabetes mellitus
Management as per primary service
Obstructive sleep apnea
He utilizes CPAP at home.
He would benefit from CPAP therapy here, management as per primary service.
-History of diabetes maintained on metformin, check hemoglobin A1c in a.m.
-Obstructive sleep apnea utilizes CPAP at home. Would benefit from CPAP here
Patient mentions having 'a cancer in the lungs'
Review of medical records includes a PET CT scan February 04, 2024 [facility] which finds Stable size adenocarcinoma spectrum lesion where surveillance is recommended until 5 years of stability has been reached.
Discussed with patient and all of his questions have been answered.
Also discussed with IVU nursing.
Total time spent today was 63 minutes in preparing to see the patient, seeing the patient and coordination of care. This included review of recent laboratory evaluations, cardiact testing, imaging studies, primary care rtecords, specialty
consultations, hospital records, as well as personally interviewing and examining the patient, which included discussion of their tests, review/ordering medications, and communicating with other healthcare professionals and also treatment planning
as well as counseling.
HPI 04/11/2023:
Patient is an 83-year-old male with past medical history significant for CABG x 3 11/2006, multiple coronary interventions which he reports he has 10 or 11 stents with last intervention 3 or 4 years ago, hypertension, hyperlipidemia, diabetes, TIA,
prostate cancer with hormone therapy, pneumothorax, GERD, 'brain bleed after traumatic fall several years ago', DVT, AAA and recent diagnosis of lung cancer on PET scan who presents to [facility] emergency department 04/11/2024 with complaints of
back and chest discomfort as well as shortness of breath. Patient followed with Dr. Peterson at [facility] but most recently with Dr. Buzz Quintanilla at [facility] for cardiology care as well as Dr. Bernabe Norman of CT surgery [place]
and Dr. Escalera of vascular surgery for AAA ([place]). He reports he has had intermittent chest and back discomfort for several days when he goes out in the cold. However this morning he reports his chest tightness and shortness of breath were more
persistent and occurred with minimal activity. He reports he took 2 Tylenol and 2 Naprosyn thinking it was from his chronic back pain however he got nauseous developed dry heaves became diaphoretic had chest pain and shortness of breath and decided
to come to [facility] emergency department for treatment. Initial troponin was 0.398 and EKG showed sinus rhythm with nonspecific ST-T wave abnormality. Repeat troponin 1.57 and patient continues to have mild chest discomfort. He started
on heparin drip with bolus and given aspirin 325 mg plus sublingual nitroglycerin with some improvement. Patient now on nitroglycerin drip with almost complete resolution of chest pain. Patient is maintained on Plavix as outpatient. He has a
history of statin intolerance and has used Zetia in the past.
Progress Note - Railroad Auditor
Subjective
Date of Service: April 12, 2024
He tells me he has not recurred with chest pain. He has no shortness of breath this morning at rest.
Objective
Labs:
04/12/24 04:55
04/12/24 04:55
Labs
Hgb 10.9 g/dL (13.0-18.0) L 04/12/24 04:55
Hct 32.3 % (39.0-52.0) L 04/12/24 04:55
Plt Count 212 10^3/uL (130-400) 04/12/24 04:55
APTT 86.5 Sec (23.4-35.0) H 04/12/24 04:55
Sodium 139 mmol/L (135-145) 04/12/24 04:55
Potassium 4.2 mmol/L (3.5-5.1) 04/12/24 04:55
BUN 29 mg/dl (9-20) H 04/12/24 04:55
Creatinine 0.8 mg/dL (0.7-1.3) 04/12/24 04:55
Glucose 119 mg/dl (70-99) H 04/12/24 04:55
Troponins
04/11/24 04/11/24 04/11/24
12:13 14:29 18:39
Troponin I 0.398 H* 1.570 H* D 9.300 H* D
04/11/24 04/11/24 04/12/24
20:17 21:49 00:00
Troponin I Cancelled 16.100 H* D Cancelled
04/12/24 04/12/24
02:17 04:55
Troponin I Cancelled 16.400 H*
Vital Signs and I&O:
Vital Signs
Temp Pulse Resp BP Pulse Ox
98.2 F 56 16 112/71 98
04/12/24 08:26 04/12/24 03:13 04/12/24 08:26 04/12/24 03:05 04/12/24 08:26
Vital Signs
Temp Pulse Resp BP Pulse Ox
98.2 F 56 16 112/71 98
04/12/24 08:26 04/12/24 03:13 04/12/24 08:26 04/12/24 03:05 04/12/24 08:26
Intake & Output
04/10/24 04/11/24 04/12/24 04/13/24
06:59 06:59 06:59 06:59
Intake Total 715 / 715
Output Total 300 / 300
Balance 415 / 415
Physical Exam
Physical Exam
Well-appearing elderly gentleman no acute distress, sitting in chair.
Regular rate and rhythm with normal S1 and S2, no S3 there is no S4 there is a grade 1/6 apical holosystolic murmur no rubs
Lungs are clear to auscultation bilaterally without wheezes rales or rhonchi
Abdomen soft nontender nondistended with normoactive bowel sounds
Extremities with trace pretibial edema bilaterally
Neurologic exam is grossly nonfocal
[2024-04-12] MEDS: LOW STRENGTH ASPIRIN 81 MG PO (09:09)
[2024-04-12] MEDS: VITAMIN D3 (cholecalciferol) 25 MCG PO (09:09)
[2024-04-12] MEDS: PLAVIX 75 MG PO (09:09)
[2024-04-12] MEDS: ZETIA 10 MG PO (09:09)
[2024-04-12] MEDS: TOPROL XL 25 MG PO ×2 (09:10→20:10)
[2024-04-12] MEDS: NORVASC 5 MG PO (09:10)
[2024-04-12] MEDS: VITAMIN C 500 MG PO (09:10)
[2024-04-12] MEDS: COZAAR 50 MG PO ×2 (09:10→20:10)
[2024-04-12] MEDS: VITAMIN B-12 1000 MCG PO (09:11)
--- NOTE | 2024-04-12 09:11 | W.PN.HOSP.TC ---
Today's Communication/Plan
-
see bold
Assessment / Plan
Assessment / Plan
HPI: 83-year-old gentleman with a past medical history notable for multiple coronary stents and history of coronary artery bypass grafting with reported CONTE-LAD and [id number]. He reports multiple stents by Dr. Devaughn Crook and most recent
stenting by Dr. Jose Manuel Pittman. He has a reported history of a large abdominal and thoracic aortic aneurysm that is being followed at the [facility] and reported history of a pulmonary mass that is being followed at the
[facility]. (I spent approximately 1 hour looking through his old records on his medical portal and was able to obtain additional information as listed below). He has known carotid artery disease with prior TIA/CVA. Chronic back
discomfort.
#Unstable coronary syndrome/acute non-ST segment elevation myocardial infarction
#Coronary artery disease status post CABG x 3 with multiple PCI's
Troponin peaked at 16.4, now down trended
Appreciate cardiology input, continue IV heparin drip, aspirin, Plavix, statin, losartan, metoprolol
Likely for cardiac catheterization on Sunday
#Recent diagnosis of lung cancer
Outpatient follow-up
#Obstructive sleep apnea
Continue CPAP
#Essential hypertension
Continue losartan, metoprolol, amlodipine
#Type 2 diabetes
A1C 6.1
Continue metformin, sliding scale insulin
#Abdominal aortic aneurysm
#Ascending aortic aneurysm
Outpatient surveillance
#Prostate cancer
Continue Casodex
#GERD
Continue PPI
#BPH
Continue Flomax
#Gout
Continue allopurinol
#Insomnia
Continue Ambien
DVT prophylaxis�heparin drip as above
Full code
Total time spent to see the patient on the floor, examine the patient, review data and lab results, discuss treatment plan with patient, nursing staff around 45 minutes.
Physical Exam
General: No acute distress
HEENT: Normocephalic, Atraumatic, EOMI, MMM
Respiratory: Clear to Auscultation bilaterally
Cardiac: Normal S1/S2, Regular Rate and Rhythm
GI: Soft, Nontender, Nondistended, Normal Bowel Sounds
Extremities: No Clubbing, Cyanosis
Neuro: Nonfocal/Grossly Intact
Anticipated Discharge: > 48 hours
Subjective/Interval History
-
Date of Service: April 12, 2024
Patient denies chest pain, denies shortness of breath. No fever, no vomiting.
Objective Data
-
Labs:
Laboratory Results
04/11/24 04/12/24 04/12/24
21:49 04:55 11:00
WBC 7.5
Hgb 10.9 L
Hct 32.3 L
Plt Count 212
APTT 52.3 H 86.5 H Pending
Sodium 139
Potassium 4.2
Chloride 107
Carbon Dioxide 23
BUN 29 H
Creatinine 0.8
Glucose 119 H
Calcium 8.4
Total Bilirubin 0.5
AST 88 H
ALT 16
Alkaline Phosphatase 91
Vital Signs:
Vital Signs
Temp Pulse Resp BP Pulse Ox
98.2 F 56 16 112/71 98
04/12/24 08:26 04/12/24 03:13 04/12/24 08:26 04/12/24 03:05 04/12/24 08:26
I&O
04/11/24 04/12/24 04/13/24
06:59 06:59 06:59
Intake Total 715 / 715
Output Total 300 / 300
Balance 415 / 415
[2024-04-12] MEDS: ZYLOPRIM 100 MG PO (09:12)
[2024-04-12 10:28] LABS: APTT 90.2 Sec (23.4-35.0)
[2024-04-12] MEDS: NSS 1000 IV (11:40)
[2024-04-12 11:53] VITALS: BP 112/59
[2024-04-12] MEDS: HEPARIN 25000 UNITS/250 ML IV (11:59)
[2024-04-12 12:31] LABS: Glycohemoglobin (HgbA1c) 6.1 % (4.0-5.6)
[2024-04-12 15:57] VITALS: BP 112/51
[2024-04-12 16:00] LABS: Glucose - Point of Care 119 mg/dl (70-99)
--- NOTE | 2024-04-12 16:00 | PTCARENOTE ---
patient called out c/o feeling 'hot' clammy, BP 112/51, HR 58, no c/o pain. BS obtained 119, encouraged patient to drink cranberry juice at bedside, feel better. will continue to monitor.
[2024-04-12 16:40] VITALS: BMI 22.3
[2024-04-12] MEDS: GLUCOPHAGE 500 MG PO (18:03)
[2024-04-12] MEDS: CRESTOR 10 MG PO (18:03)
[2024-04-12 19:23] VITALS: BP 108/58
[2024-04-12 22:30] VITALS: BP 99/63
[2024-04-12] MEDS: AMBIEN 2.5 MG PO (22:44)
[2024-04-12] MEDS: FLOMAX 0.4 MG PO (22:44)
[2024-04-12] MEDS: ARICEPT 10 MG PO (22:44)
[2024-04-12] MEDS: CASODEX 50 MG PO (22:44)
[2024-04-13] VITALS (7 sets, daily range): BP systolic 106–123; BP diastolic 62–76; BMI 22.8
--- NOTE | 2024-04-13 00:21 | PTCARENOTE ---
Assumed care of the pt @ 1900. AAOx3 SR/SB on the monitor. VSS denies cp. Heparin gtt infusing @ 1300 units/HR. Pt ambulated to bathroom without difficulty + bm. CPAP mask in use for sleeping. Call [facility] within reach.
[2024-04-13 05:17] LABS: Hematocrit 34.2 % (39.0-52.0); Hemoglobin 11.6 g/dL (13.0-18.0); Mean Corp Hgb Conc. 33.9 g/dL (33.0-37.0); Mean Corpuscular Hgb 31.8 pg (27.0-31.0); Mean Corpuscular Volume 93.7 fL (80.0-94.0); Mean Platelet Volume 10.2 fL (7.4-10.4); Platelet Count 210 10^3/uL (130-400); Red Blood Cell Count 3.65 10^6/uL (4.70-6.10); White Blood Cell Count 8.6 10^3/uL (4.8-10.8)
[2024-04-13 05:37] LABS: Blood Urea Nitrogen 21 mg/dl (9-20); Calcium 8.6 mg/dl (8.4-10.2); Carbon Dioxide 22 mmol/L (22-30); Chloride 106 mmol/L (98-107); Estimated Creatinine Clearance 73 ml/min; Glucose 103 mg/dl (70-99); Potassium 4.2 mmol/L (3.5-5.1); Sodium 136 mmol/L (135-145); eGFR > 60.00
[2024-04-13] MEDS: HEPARIN 25000 UNITS/250 ML IV ×2 (05:40→22:49)
--- NOTE | 2024-04-13 07:20 | W.PN.CARDCBS ---
Today's Communication / Plan
-
Plan for coronary angiography and possible intervention tomorrow morning
Impression / Plan
-
PCP: Dr. Gabriella Mireles but most recently, Dr. Antonella Sanders, [facility]
Prefitter: Dr. Marshall, [facility] most recently Dr. Buzz Quintanilla at [facility]
Impression:
Presents 04/11/2024 with chest tightness, shortness of breath, back pain
NSTEMI
Abnormal troponin
CAD
RCA stent 1994
2 stents 1995, 1 stent 2000, 1 stent 2002, 2 stents 2003
Status post CABG x 3 11/2006 (CONTE-LAD, SVG-PDA, SVG->Diag)
Multiple coronary interventions; PCI in , last STEMI/PCI x 3 2019 cath was [facility]
Hypertension
Hyperlipidemia
Statin intolerance
Type 2 diabetes
Ascending aortic aneurysm (4.6 cm; follows with Dr. Bernabe Norman)
AAA (CTA 09/17/23: up to 5 cm with moderate ulcerated mural thrombus; follows with Dr. Radha Escalera and Dr Bernabe Norman)
Recommendation from his evaluation at [facility] was to repeat CT scan in 1 year, trigger for surgery would be >5.5 cm or growth > 0.5 cm)
Remote DVT
Prostate cancer with hormone therapy
History of spontaneous pneumothorax 2006
GERD
TIA
Recent diagnosis of lung cancer
Obstructive sleep apnea on CPAP
Spinal stenosis with prior laminectomy
Carotid stenosis
SDH after traumatic fall
ECHO 04/11/24 ([place]): Normal LV size and function, LVEF 60-65%. There is inferior apex and septal apex hypokinesis/akinesis. There is mild AI, mild TR. Mildly dilated aortic root, 4.4 cm at the sinus Valsalva
Echo 07/20/2023 ([facility]) EF 60 to 65%. Stage I DD. Normal RV size and function. Mild MAC, mild aortic sclerosis without stenosis. Ascending aorta mildly dilated at 4.1 cm
Lexiscan nuclear stress test 07/20/2023 ([facility]): No perfusion defects, LV perfusion is negative for ischemia, EF 63%
14-day ambulatory monitor completed 10/20/2023: Sinus rhythm, heart rate range 39 to 174 bpm with average 62 bpm. No atrial fibrillation, advanced heart block or prolonged pauses. Occasional PVCs 3.6%, PVC less than 1%. Intermittent bundle branch
block. 19 supraventricular tachycardia runs with fastest lasting 6 beats at max heart rate 174 bpm, longest 18 beats with average heart rate of 120 bpm
Lower extremity ABIs 09/17/2023: Right LIONEL 1.15, left LIONEL 1.07
Carotid duplex 01/10/2023 ([facility]): 50 to 69% bilateral internal carotid artery stenosis right greater than left
PET CT scan February 04, 2024: Right middle lobe groundglass nodular measuring up to 2.9 cm, unchanged since 02/20/2023. Additionally an outside report documents this lesion measuring up to 2.9 cm dating back to at least November 04, 2019. There is
no identifiable solid component to today's examination, likely due to differences in technique. This lesion demonstrates FDG uptake less than blood pool in keeping with an adenocarcinoma spectrum lesion. Recommendation is continued surveillance
with chest CT until 5 years stability has been reached.
Plan:
Presents 04/11/2024 with chest tightness, shortness of breath, back pain inpatient with multivessel coronary artery disease with prior CABG x 3 and numerous coronary interventions most recently in 2019 at [facility]
Acute NSTEMI with known complex CAD history
He remains pain-free, off NTG drip.
He is hemodynamically stable
Troponin initially 0.398, Then 1.57 -> 9.3 -> 16.1 -> 16.4 -> 12.6 -> 6.6
ECG sinus rhythm with nonspecific ST-T wave abnormality inferiorly, unchanged on serial ECGs
ECHO 04/11 finds inferior apex and septal apex hypokinesis/akinesis (no prior echo in our system)
-Continue IV heparin
-Continue Toprol-XL 25 mg twice daily
-Continue aspirin 81 mg daily and Plavix 75 mg daily
-Continue losartan 50 mg twice daily
-Continue rosuvastatin 10 mg daily
LDL cholesterol 77, total cholesterol 152, HDL cholesterol 51, triglycerides 123
(outpatient records indicates possible statin and Zetia however had allover body pain and had stopped it recently. Unclear if patient has ever tried PCSK9 inhibitor)
He would likely benefit from evaluation of his coronary anatomy and possible intervention prior to discharge
Will continue antianginal therapy with goal of keeping him pain free and discuss plans further with interventional cardiology
Plan for coronary angiography and possible intervention April 14 (we will add to cath schedule)
Vascular/aortic disease
Ascending aortic aneurysm 4.6 cm, AAA 5 cm with moderate ulcerated mural thrombus by CTA 09/17/23
He tells me that at recent visit with Dr. Radha Escalera approximately 1 week ago abdominal aortic ultrasound suggested growth of the AAA
* He is scheduled for repeat CTA at [facility] next week
Anemia
Follow hemoglobin closely as he has been maintained on IV heparin along with dual antiplatelet therapy in the setting of acute coronary syndrome
Hgb has been stable, 11.6
Essential hypertension
Blood pressure is currently well-controlled.
Maintain Toprol-XL 25 mg twice daily
Maintain losartan 50 mg twice daily
Diabetes mellitus
Management as per primary service
Obstructive sleep apnea
He utilizes CPAP at home.
He would benefit from CPAP therapy here, management as per primary service.
-History of diabetes maintained on metformin, check hemoglobin A1c in a.m.
-Obstructive sleep apnea utilizes CPAP at home. Would benefit from CPAP here
Patient mentions having 'a cancer in the lungs'
Review of medical records includes a PET CT scan February 04, 2024 [facility] which finds Stable size adenocarcinoma spectrum lesion where surveillance is recommended until 5 years of stability has been reached.
Discussed with patient and all of his questions have been answered.
HPI 04/11/2023:
Patient is an 83-year-old male with past medical history significant for CABG x 3 11/2006, multiple coronary interventions which he reports he has 10 or 11 stents with last intervention 3 or 4 years ago, hypertension, hyperlipidemia, diabetes, TIA,
prostate cancer with hormone therapy, pneumothorax, GERD, 'brain bleed after traumatic fall several years ago', DVT, AAA and recent diagnosis of lung cancer on PET scan who presents to [place] emergency department 04/11/2024 with complaints of
back and chest discomfort as well as shortness of breath. Patient followed with Dr. Peterson at [facility] but most recently with Dr. Buzz Quintanilla at [facility] for cardiology care as well as Dr. Bernabe Norman of CT surgery [place]
and Dr. Escalera of vascular surgery for AAA ([place]). He reports he has had intermittent chest and back discomfort for several days when he goes out in the cold. However this morning he reports his chest tightness and shortness of breath were more
persistent and occurred with minimal activity. He reports he took 2 Tylenol and 2 Naprosyn thinking it was from his chronic back pain however he got nauseous developed dry heaves became diaphoretic had chest pain and shortness of breath and decided
to come to [facility] emergency department for treatment. Initial troponin was 0.398 and EKG showed sinus rhythm with nonspecific ST-T wave abnormality. Repeat troponin 1.57 and patient continues to have mild chest discomfort. He started
on heparin drip with bolus and given aspirin 325 mg plus sublingual nitroglycerin with some improvement. Patient now on nitroglycerin drip with almost complete resolution of chest pain. Patient is maintained on Plavix as outpatient. He has a
history of statin intolerance and has used Zetia in the past.
Progress Note - Prefitter
Subjective
Date of Service: April 13, 2024
He tells me he has had no recurrence of chest pain.
Objective
Labs:
04/13/24 04:55
04/13/24 04:55
Labs
Hgb 11.6 g/dL (13.0-18.0) L 04/13/24 04:55
Hct 34.2 % (39.0-52.0) L 04/13/24 04:55
Plt Count 210 10^3/uL (130-400) 04/13/24 04:55
APTT 91.0 Sec (23.4-35.0) H 04/13/24 04:55
Sodium 136 mmol/L (135-145) 04/13/24 04:55
Potassium 4.2 mmol/L (3.5-5.1) 04/13/24 04:55
BUN 21 mg/dl (9-20) H 04/13/24 04:55
Creatinine 0.8 mg/dL (0.7-1.3) 04/13/24 04:55
Glucose 103 mg/dl (70-99) H 04/13/24 04:55
Troponins
04/11/24 04/11/24 04/11/24
12:13 14:29 18:39
Troponin I 0.398 H* 1.570 H* D 9.300 H* D
04/11/24 04/11/24 04/12/24
20:17 21:49 00:00
Troponin I Cancelled 16.100 H* D Cancelled
04/12/24 04/12/24 04/12/24
02:17 04:55 10:09
Troponin I Cancelled 16.400 H* 12.600 H*
04/12/24 04/13/24
15:45 04:55
Troponin I Cancelled 6.600 H*
Vital Signs and I&O:
Vital Signs
Temp Pulse Resp BP Pulse Ox
97.8 F 45 20 120/64 97
04/13/24 07:03 04/13/24 06:00 04/13/24 07:03 04/13/24 04:48 04/13/24 07:03
Vital Signs
Temp Pulse Resp BP Pulse Ox
97.8 F 45 20 120/64 97
04/13/24 07:03 04/13/24 06:00 04/13/24 07:03 04/13/24 04:48 04/13/24 07:03
Intake & Output
04/11/24 04/12/24 04/13/24 04/14/24
06:59 06:59 06:59 06:59
Intake Total 715 / 715 312 / 312
Output Total 300 / 300 850 / 850
Balance 415 / 415 -538 / -538
Physical Exam
Physical Exam
Well-appearing elderly gentleman no acute distress
Regular rate and rhythm with normal S1 and S2, no S3 there is no S4 there is a grade 1/6 apical holosystolic murmur no rubs
Lungs are clear to auscultation bilaterally without wheezes rales or rhonchi
Abdomen soft nontender nondistended with normoactive bowel sounds
Extremities with trace pretibial edema bilaterally
Neurologic exam is grossly nonfocal
[2024-04-13] MEDS: COZAAR 50 MG PO ×2 (08:06→22:06)
[2024-04-13] MEDS: LOW STRENGTH ASPIRIN 81 MG PO (08:06)
[2024-04-13] MEDS: ZETIA 10 MG PO (08:06)
[2024-04-13] MEDS: VITAMIN C 500 MG PO (08:06)
[2024-04-13] MEDS: NORVASC 5 MG PO (08:06)
[2024-04-13] MEDS: VITAMIN D3 (cholecalciferol) 25 MCG PO (08:06)
[2024-04-13] MEDS: VITAMIN B-12 1000 MCG PO (08:06)
[2024-04-13] MEDS: TOPROL XL 25 MG PO ×2 (08:07→22:06)
[2024-04-13] MEDS: PLAVIX 75 MG PO (08:07)
[2024-04-13] MEDS: ZYLOPRIM 100 MG PO (08:07)
[2024-04-13] MEDS: NAPROSYN 250 MG PO (08:11)
--- NOTE | 2024-04-13 08:32 | W.PN.HOSP.TC ---
Today's Communication/Plan
-
For cardiac catheterization tomorrow
Assessment / Plan
Assessment / Plan
HPI: 83-year-old gentleman with a past medical history notable for multiple coronary stents and history of coronary artery bypass grafting with reported CONTE-LAD and [id number]. He reports multiple stents by Dr. Devaughn Crook and most recent
stenting by Dr. Jose Manuel Pittman. He has a reported history of a large abdominal and thoracic aortic aneurysm that is being followed at the [facility] and reported history of a pulmonary mass that is being followed at the
[facility]. (I spent approximately 1 hour looking through his old records on his medical portal and was able to obtain additional information as listed below). He has known carotid artery disease with prior TIA/CVA. Chronic back
discomfort.
#Unstable coronary syndrome/acute non-ST segment elevation myocardial infarction
#Coronary artery disease status post CABG x 3 with multiple PCI's
Troponin peaked at 16.4, now down trended
Appreciate cardiology input, continue IV heparin drip, aspirin, Plavix, statin, losartan, metoprolol
For cardiac catheterization on Sunday
#Recent diagnosis of lung cancer
Outpatient follow-up
#Obstructive sleep apnea
Continue CPAP
#Essential hypertension
Continue losartan, metoprolol, amlodipine
#Type 2 diabetes
A1C 6.1
Continue metformin, sliding scale insulin
#Abdominal aortic aneurysm
#Ascending aortic aneurysm
Outpatient surveillance
#Prostate cancer
Continue Casodex
#GERD
Continue PPI
#BPH
Continue Flomax
#Gout
Continue allopurinol
#Insomnia
Continue Ambien
DVT prophylaxis�heparin drip as above
Full code
Total time spent to see the patient on the floor, examine the patient, review data and lab results, discuss treatment plan with patient, nursing staff around 40 minutes.
Physical Exam
General: No acute distress
HEENT: Normocephalic, Atraumatic, EOMI, MMM
Respiratory: Clear to Auscultation bilaterally
Cardiac: Normal S1/S2, Regular Rate and Rhythm
GI: Soft, Nontender, Nondistended, Normal Bowel Sounds
Extremities: No Clubbing, Cyanosis
Neuro: Nonfocal/Grossly Intact
Anticipated Discharge: 24 - 48 hours
Subjective/Interval History
-
Date of Service: April 13, 2024
No recurrence of chest pain. Patient reports he has chronic back pain. No shortness of breath, no nausea, no vomiting. No fever.
Objective Data
-
Labs:
Laboratory Results
04/13/24
04:55
WBC 8.6
Hgb 11.6 L
Hct 34.2 L
Plt Count 210
APTT 91.0 H
Sodium 136
Potassium 4.2
Chloride 106
Carbon Dioxide 22
BUN 21 H
Creatinine 0.8
Glucose 103 H
Calcium 8.6
Vital Signs:
Vital Signs
Temp Pulse Resp BP Pulse Ox
97.8 F 57 20 106/62 97
04/13/24 07:03 04/13/24 08:07 04/13/24 07:03 04/13/24 08:07 04/13/24 07:03
I&O
04/12/24 04/13/24 04/14/24
06:59 06:59 06:59
Intake Total 715 / 715 312 / 312
Output Total 300 / 300 850 / 850
Balance 415 / 415 -538 / -538
--- NOTE | 2024-04-13 08:38 | PTCARENOTE ---
received patient this am, c/o lower chronic back pain, naproxen po given as ordered. monitor shows NSR with a first degree, VSS. patient will be NPO after MN for procedure in am, patient verbalizes understanding. yarn preparation supervisor, Sonia was notified to
put patient on cath schedule.IV heparin @ 1300units/hr without difficulties.
[2024-04-13] MEDS: GLUCOPHAGE 500 MG PO (17:16)
[2024-04-13] MEDS: CRESTOR 10 MG PO (17:16)
[2024-04-13] MEDS: CASODEX 50 MG PO (22:06)
[2024-04-13] MEDS: ARICEPT 10 MG PO (22:06)
[2024-04-13] MEDS: FLOMAX 0.4 MG PO (22:06)
[2024-04-13] MEDS: AMBIEN 2.5 MG PO (22:07)
[2024-04-14] VITALS (14 sets, daily range): BP systolic 68–127; BP diastolic 52–91; BMI 22.6
--- NOTE | 2024-04-14 01:06 | PTCARENOTE ---
Assumed care of the patient @ 1900. Pt AAOx3 SR/SB 45-60's on the monitor VSS. Heparin gtt infusing @1300 units/HR. NPO after midnight for Cath procedure. Pt using CPAP machine for sleep. Call machuca within reach
[2024-04-14 05:16] LABS: APTT 100.9 Sec (23.4-35.0)
[2024-04-14 05:30] LABS: % Basophils 0.8 % (0-2); % Eosinophils 3.2 % (0-6); % Immature Granulocytes 0.3 % (0-0.5); % Monocytes 11.2 % (1.7-9.3); % Neutrophils 61.5 % (42.2-75.2); Absolute Basophils 0.1 10^3/uL (0-0.2); Absolute Eosinophils 0.3 10^3/uL (0-0.7); Absolute Lymphocytes 1.8 10^3/uL (1.2-3.4); Absolute Monocytes 0.9 10^3/uL (0.1-0.6); Absolute Neutrophils 4.8 10^3/uL (1.4-6.5); Hemoglobin 11.7 g/dL (13.0-18.0); Mean Corp Hgb Conc. 34.4 g/dL (33.0-37.0); Mean Corpuscular Hgb 32.3 pg (27.0-31.0); Mean Corpuscular Volume 93.9 fL (80.0-94.0); Mean Platelet Volume 10.4 fL (7.4-10.4); Nucleated Red Blood Cells % 0 % (-); Platelet Count 211 10^3/uL (130-400); Red Blood Cell Count 3.62 10^6/uL (4.70-6.10); Red Cell Dist. Width 12.2 % (11.5-14.5); White Blood Cell Count 7.8 10^3/uL (4.8-10.8)
[2024-04-14 05:55] LABS: Blood Urea Nitrogen 21 mg/dl (9-20); Calcium 8.9 mg/dl (8.4-10.2); Carbon Dioxide 26 mmol/L (22-30); Chloride 104 mmol/L (98-107); Estimated Creatinine Clearance 64 ml/min; Glucose 96 mg/dl (70-99); Potassium 4.3 mmol/L (3.5-5.1); Sodium 136 mmol/L (135-145); eGFR > 60.00
[2024-04-14] MEDS: VITAMIN B-12 1000 MCG PO (08:58)
[2024-04-14] MEDS: LOW STRENGTH ASPIRIN 81 MG PO (08:58)
[2024-04-14] MEDS: VITAMIN C 500 MG PO (08:58)
[2024-04-14] MEDS: COZAAR 50 MG PO ×2 (08:58→19:51)
[2024-04-14] MEDS: PLAVIX 75 MG PO (08:59)
[2024-04-14] MEDS: ZYLOPRIM 100 MG PO (08:59)
[2024-04-14] MEDS: NORVASC 5 MG PO (08:59)
[2024-04-14] MEDS: VITAMIN D3 (cholecalciferol) 25 MCG PO (08:59)
[2024-04-14] MEDS: TOPROL XL 25 MG PO ×2 (08:59→19:51)
--- NOTE | 2024-04-14 09:08 | W.PN.HOSP.TC ---
Today's Communication/Plan
-
see A/P
Assessment / Plan
Assessment / Plan
HPI: 83-year-old gentleman with past medical history notable for multiple coronary stents and history of coronary artery bypass grafting with reported CONTE-LAD and [id number]. He reported multiple stents by Dr. Devaughn Crook and most recent
stenting by Dr. Jose Manuel Pittman. He has a reported history of a large abdominal and thoracic aortic aneurysm that is being followed at the [facility] and reported history of a pulmonary mass that is being followed at the
[facility]. He has known carotid artery disease with prior TIA/CVA. Chronic back discomfort.
A/P:
# ACS/non-ST elevation myocardial infarction
# h/o Coronary artery disease status post CABG x 3 with multiple PCI's
Troponin peaked at 16.4, now down trended
Echo with EF 60-65%. The inferoapex and septal apex appear hypokinetic to akinetic. Normal diastolic function.
Appreciate cardiology input
holding IV heparin drip,
Cont aspirin, Plavix, statin, losartan, metoprolol
For cardiac catheterization on Friday 04/14
# Recent diagnosis of lung cancer
Outpatient follow-up at [facility]
# Obstructive sleep apnea
Continue CPAP
# Essential hypertension
Continue losartan, metoprolol, amlodipine
# Type 2 diabetes
A1C 6.1 %
Holding metformin dyan-cath
cover with sliding scale insulin
# Abdominal aortic aneurysm
# Ascending aortic aneurysm
Outpatient surveillance
# Prostate cancer
Continue Casodex
# GERD
Continue PPI
# BPH
Continue Flomax
# Gout
Continue allopurinol
# Insomnia
Continue Ambien
DVT prophylaxis�heparin drip on hold
Full code
DW RN
Anticipated Discharge: 24 - 48 hours
Subjective/Interval History
-
Date of Service: April 14, 2024
Objective Data
-
Labs:
Laboratory Results
04/14/24
04:47
WBC 7.8
Hgb 11.7 L
Hct 34.0 L
Plt Count 211
APTT 100.9 H
Sodium 136
Potassium 4.3
Chloride 104
Carbon Dioxide 26
BUN 21 H
Creatinine 0.9
Glucose 96
Calcium 8.9
Vital Signs:
Vital Signs
Temp Pulse Resp BP Pulse Ox
36.7 C 62 18 121/83 96
04/14/24 07:30 04/14/24 08:59 04/14/24 07:30 04/14/24 08:59 04/14/24 07:30
I&O
04/13/24 04/14/24 04/15/24
06:59 06:59 06:59
Intake Total 312 / 312 156 / 156
Output Total 850 / 850 1125 / 1125
Balance -538 / -538 -969 / -969
Review of Systems
-
All other systems: Reviewed and negative
Physical Exam
-
General: Well Developed, Well Nourished, No Apparent Distress, Comfortable and Conversant; Negative Respiratory Distress
HEENT: Normocephalic, Atraumatic, Nose Appears Normal and Ears Appear Normal; Negative Oxygen
Respiratory: Clear to Auscultation and Non Labored Respirations; Negative Accessory Resp Muscle Use
Cardiac: Regular Rhythm and S1/S2
GI: Soft, Nontender, Nondistended and Normal Bowel Sounds
Skin: Warm and Dry
Neuro: Awake, Alert, Oriented and AO x 3
Psych: Calm and Intact Judgement/Insight
Data Reviewed
-
Labs: Labs Reviewed by me
--- NOTE | 2024-04-14 09:59 | CM ---
Reviewed chart. Met with Mr. Rivera to review discharge plans. He states prior to admission he resides with his spouse in a two story home with two steps to enter. He states he has a first floor set-up. He states prior to admission he was
independent with adls and uses a single point cane at home. He states he has a single point cane and bi-pap machine at home. He states he has a prescription plan and uses [facility]. He states his spouse had recent surgery at [facility] and was at
[facility] for Rehab. She is currently home with [facility]. Their daughter is staying with her at this time. If he needs VNA Services he would like to use [facility]. Medical work-up in progress. The discharge plan is to
return home with his spouse and VNA Services if indicated.
--- NOTE | 2024-04-14 10:19 | W.PN.UPDATE ---
Addendum entered and electronically signed by Susy Benavides PA-C 04/14/24 10:55:
Got a call back from Ning the ethics officer at [facility] and they are asking for a faxed letterhead to confirm that I am calling from and then they will send cath report. Faxed letterhead to Ning at [phone] and received
confirmation from fax machine. Asked party plan sales unit sales leader to alert me when cath report comes through.
Original Note:
Update Note
Progress Note Update
We have been unable to locate records from cardiac cath at [facility] in 2019. HOURS were spent this past Sunday trying to track down records. Dr. Cao called [facility] on Sunday and they did not have cath report in their system, he even called the lab support technician
and they did not have the images. Cath was performed by Dr. Reno at [facility] so I called their office at [phone] today, but because patient has never been seen at [facility] and all care was in the hospital, they do not have any of the records. I asked
if they could log into the [facility] [employer] system and they said no and suggested I get epic, not helpful. I then called [facility] and talked to Olivia and asked to talk with a nurse to go through the patient's chart with me, she transferred me
to the physician practice market manager and I had to leave a message and await a call back. Difficult to provide continuity of care due to going to multiple hospitals, sounds as though the [facility] trip in 2019 was ER and now no longer wants to go there so he came to
[facility] for the first time ever this week.
--- NOTE | 2024-04-14 11:33 | W.PN.UPDATE ---
Update Note
Progress Note Update
Catheter report from procedure at [facility] 03/23/2019: Right ELECTRIC MULE DRIVER access, LM without significant stenosis, LAD with long segment 60 to 70% proximal stenosis with an occluded diagonal branch that is perfused via the vein graft conduit,
circumflex with focal 80% distal stenosis and collaterals to a small PLB, OM�1 with proximal 40 to 50% stenosis, RCA not injected selectively but appears occluded on retrograde opacification in the distal RCA is grafted but diffusely diseased. CONTE
to LAD widely patent, SVG to diagonal is diffusely diseased and degenerated with a focal thrombotic subtotal occlusion in the mid body and hazy appearance in the distal vessel suggestive of an intraluminal thrombus, SVG to distal RCA with diffuse
tubular 70% proximal stenosis and local ulcerated eccentric 60 to 70% stenosis in the mid body. SVG to diagonal stented with 3.5 mm Xience KATERINA with excellent result. SVG to RCA stented with 4 mm Xience KATERINA in the mid portion and a 4 mm Xience KATERINA
in the prox portion
[2024-04-14] MEDS: ZETIA 10 MG PO (12:04)
--- NOTE | 2024-04-14 14:35 | PTCARENOTE ---
received patient this am, IV heparin @ 1300units/hr. patient remains NPO for heart cath today. monitor shows NSR with first degree. VSS.
--- NOTE | 2024-04-14 16:38 | PTCARENOTE ---
patient has remained NPO all day. report given to laboratory veterinarian.
--- NOTE | 2024-04-14 18:21 | PTCARENOTE ---
patient came back from cardiac cath lab radiology technologist, very lethargic, left R band intact, as patient stated 'on tight' hand is dusky, o2 sat on left hand 96%. family at bedside.
[2024-04-14] MEDS: CRESTOR 10 MG PO (18:29)
--- NOTE | 2024-04-14 18:34 | ITS.CL.CATH ---
Double End Tenoner Setter - Catheterization
Cardiac Catheterization
Procedure Report:
LEFT HEART CATHETERIZATION
Date of Procedure: April 14, 2024
Referring: Ramy Garcia MD
PROCEDURES:
1. Left heart catheterization, coronary angiogram.
2. Ultrasound-guided access.
3. Selective graft angiography.
INDICATION: NSTEMI--of note, we received most recent heart catheterization report from March 23, 2019 from [facility] which noted a right dominant system with long segment of 60 to 70% proximal LAD stenosis, an occluded diagonal branch
which is perfused via the vein graft conduit, focal 80% distal stenosis in the left circumflex artery with collaterals to a small caliber posterolateral branch. OM1 has proximal 40 to 50% stenosis. RCA was not injected selectively but appeared
occluded based on retrograde opacification. The distal RCA is grafted but diffusely diseased. There is a CONTE graft which was widely patent to the LAD. Saphenous vein graft to diagonal branch is diffusely diseased and degenerated with a focal
thrombotic subtotal occlusion in the mid body and hazy appearance in the distal vessel suggestive of intraluminal thrombus. SVG to distal RCA has diffuse tubular 70% proximal stenosis and local ulcerated eccentric 60 to 70% stenosis in the mid
body. The initially used an AL-1 guide catheter and laser atherectomy on the SVG to D1 at the focal thrombotic stenosis resulting in a nice lumen enlargement per report. The vessel was then stented with a 3.5 x 33 mm Xience stent deployed at high
pressure with an excellent result by report. They then treated SVG to RCA with a multipurpose guiding catheter and wiring with the filter wire system as distal embolic protection. Direct stent implantation was performed in the midportion with a 4
oh by 15 mm Xience stent and proximally with a 4 oh by 33 mm Xience stent. The filter wire was retrieved with no thrombus noted in the filter. The final angiographic result was excellent.
ACCESS: Left radial artery
Ultrasound was utilized for vascular access. The radial artery was visualized under ultrasound, and the vessel was patent and pulsatile. An image was stored permanently in the patient's medical record. Under direct ultrasound guidance, a 6 Kosovan
sheath was inserted into the artery using a micropuncture kit through a modified Seldinger technique.
HEMODYNAMICS : (mmHg)
AO (s/d) : 145/71
LV (s/d) : 145/12
LVEDP : 22
CORONARY FINDINGS
DOMINANCE: Right
LEFT MAIN: The left main artery is a medium caliber vessel which gives rise to the left anterior descending artery and the left circumflex artery. There is mild diffuse atherosclerotic plaque.
LEFT ANTERIOR DESCENDING: The left anterior descending artery has a long segment of 60 to 70% stenosis in the proximal LAD along with an occluded diagonal branch. Mid to distal LAD appears to have competitive flow from a patent CONTE graft. There
is [id number] collaterals noted.
CIRCUMFLEX: The left circumflex artery is a medium caliber vessel which gives rise to 2 major obtuse marginal branches. OM1 has a 80 to 90% stenosis and is small to medium in caliber. OM 2 has a long segment of diffuse up to 70 to 75% stenosis and
is also a small to medium caliber vessel.
RIGHT CORONARY ARTERY: The right coronary artery appears to be heavily calcified with 100% chronic total occlusion in the proximal to mid RCA with faint xded-cb-mikdy collaterals.
GRAFT ANGIOGRAPHY:
1. CONTE to LAD: Widely patent.
2. SVG to distal RCA: Diffuse up to 70 to 80% in-stent restenosis in the proximal to mid SVG to distal RCA with the saphenous vein graft appearing ectatic with diffuse moderate CAD.
3. SVG to diagonal: Despite using multiple diagnostic catheters including 5 Kosovan JR4, AL-1, we could not selectively engage this graft with possibility that it has now occluded.
SEDATION: 61 minutes of procedural sedation was utilized. An independent medical records analyst was present to assist with and help manage the patient's level of consciousness and physiologic status.
RADIATION SUMMARY: Fluoro Time (min): 16, Dose (mGy): 616.67, DAP (Gy.cm2) : 47.4
Closure Device: Vascular band over left radial artery, 11 cc of air.
CONCLUSIONS
1. Significant [place] coronary artery disease.
2. OM1 has a 80 to 90% stenosis and is small to medium in caliber. OM 2 has a long segment of diffuse up to 70 to 75% stenosis and is also a small to medium caliber vessel.
3. Widely patent CONTE to LAD graft.
4. Diffuse up to 70 to 80% in-stent restenosis in the proximal to mid SVG to the distal RCA with the saphenous vein graft appearing ectatic with diffuse moderate CAD.
5. Despite using multiple diagnostic catheters including 5 Kosovan JR4, AL-1, we could not selectively engage SVG to diagonal with possibility that it has now occluded.
RECOMMENDATIONS
1. Goal-directed medical therapy for NSTEMI with optimization of antianginal medications.
2. Discussion in regards to possible treatment options in addition to medication including PCI to OM1 versus in-stent proximal to mid SVG (to distal RCA) restenosis.
3. Optimization of cardiovascular risk factors.
4. Eventual referral for outpatient cardiac rehab
Keyla Elizalde MD, FACC, [facility]
[2024-04-14] MEDS: AMBIEN 2.5 MG PO (22:28)
[2024-04-14] MEDS: FLOMAX 0.4 MG PO (22:28)
[2024-04-14] MEDS: ARICEPT 10 MG PO (22:28)
[2024-04-14] MEDS: CASODEX 50 MG PO (22:29)
[2024-04-15] VITALS (8 sets, daily range): BP systolic 91–126; BP diastolic 50–71; PULSE 59; O2SAT 96; BMI 22.5
--- NOTE | 2024-04-15 01:03 | PTCARENOTE ---
Received patient at change of shift. SR with a first degree on the monitor, HR in the 60s. L wrist band removed and dressing applies. Dressing CDI. No complaints from pt at this time, call machuca within reach.
[2024-04-15] MEDS: TYLENOL 1000 MG PO (02:36)
[2024-04-15] MEDS: NAPROSYN 250 MG PO (02:37)
[2024-04-15 04:16] LABS: Hematocrit 33.3 % (39.0-52.0); Hemoglobin 11.4 g/dL (13.0-18.0); Mean Corp Hgb Conc. 34.2 g/dL (33.0-37.0); Mean Corpuscular Volume 93.5 fL (80.0-94.0); Mean Platelet Volume 10.6 fL (7.4-10.4); Platelet Count 211 10^3/uL (130-400); Red Blood Cell Count 3.56 10^6/uL (4.70-6.10); Red Cell Dist. Width 12.3 % (11.5-14.5); White Blood Cell Count 8.1 10^3/uL (4.8-10.8)
[2024-04-15 04:21] LABS: Blood Urea Nitrogen 24 mg/dl (9-20); Calcium 8.7 mg/dl (8.4-10.2); Carbon Dioxide 24 mmol/L (22-30); Chloride 104 mmol/L (98-107); Estimated Creatinine Clearance 64 ml/min; Glucose 86 mg/dl (70-99); Magnesium 2.1 mg/dl (1.6-2.3); Potassium 4.1 mmol/L (3.5-5.1); Sodium 137 mmol/L (135-145); eGFR > 60.00
--- NOTE | 2024-04-15 08:00 | W.PN.HOSP.TC ---
Today's Communication/Plan
-
see A/P
Assessment / Plan
Assessment / Plan
HPI: 83-year-old gentleman with past medical history notable for multiple coronary stents and history of coronary artery bypass grafting with reported CONTE-LAD and [id number]. He reported multiple stents by Dr. Devaughn Crook and most recent
stenting by Dr. Jose Manuel Pittman. He has a reported history of a large abdominal and thoracic aortic aneurysm that is being followed at the [facility] and reported history of a pulmonary mass that is being followed at the
[facility]. He has known carotid artery disease with prior TIA/CVA. Chronic back discomfort.
A/P:
# ACS/non-ST elevation myocardial infarction
# h/o Coronary artery disease status post CABG x3 with multiple PCI's
Troponin peaked at 16.4, now down trended
Echo with EF 60-65%. The inferoapex and septal apex appear hypokinetic to akinetic. Normal diastolic function.
Appreciate cardiology input
s/p heparin drip,
Cont aspirin, Plavix, statin, losartan, metoprolol
s/p cardiac catheterization 2/3: noted significant [place] coronary artery disease. Widely patent CONTE to LAD graft. Diffuse up to 70 to 80% in-stent restenosis in the proximal to mid SVG to the distal RCA with the saphenous vein graft appearing
ectatic with diffuse moderate CAD.
Recc GDMT for now
# Recent diagnosis of lung cancer
Outpatient follow-up at [place], confirmed with pt
# Obstructive sleep apnea
Continue CPAP
# Essential hypertension
Continue losartan, metoprolol, amlodipine
# Type 2 diabetes
A1C 6.1 %
Holding metformin dyan-cath and during hospital stay
cover with sliding scale insulin
# Abdominal aortic aneurysm
# Ascending aortic aneurysm
Outpatient surveillance
# Prostate cancer
Continue Casodex
# GERD
Continue PPI
# BPH
Continue Flomax
# Gout
Continue allopurinol
# Insomnia
Continue Ambien
DVT prophylaxis�heparin drip on hold
Full code
DW RN
DW card
Anticipated Discharge: Within 24 hours
Subjective/Interval History
-
Date of Service: April 15, 2024
Objective Data
-
Labs:
Laboratory Results
04/15/24
02:47
WBC 8.1
Hgb 11.4 L
Hct 33.3 L
Plt Count 211
Sodium 137
Potassium 4.1
Chloride 104
Carbon Dioxide 24
BUN 24 H
Creatinine 0.9
Glucose 86
Calcium 8.7
Vital Signs:
Vital Signs
Temp Pulse Resp BP Pulse Ox
36.5 C 47 18 107/71 96
04/15/24 02:48 04/15/24 04:00 04/15/24 02:48 04/15/24 02:30 04/15/24 02:48
I&O
04/14/24 04/15/24 04/16/24
06:59 06:59 06:59
Intake Total 156 / 156 480 / 480
Output Total 1125 / 1125 300 / 300
Balance -969 / -969 180 / 180
Review of Systems
-
All other systems: Reviewed and negative
Physical Exam
-
General: Well Developed, Well Nourished, No Apparent Distress, Comfortable and Conversant; Negative Respiratory Distress
HEENT: Normocephalic, Atraumatic, Nose Appears Normal and Ears Appear Normal; Negative Oxygen
Respiratory: Clear to Auscultation and Non Labored Respirations; Negative Accessory Resp Muscle Use
Cardiac: Regular Rhythm and S1/S2
GI: Soft, Nontender, Nondistended and Normal Bowel Sounds
Skin: Warm and Dry
Neuro: Awake, Alert, Oriented and AO x 3
Psych: Calm and Intact Judgement/Insight
Data Reviewed
-
Labs: Labs Reviewed by me
[2024-04-15] MEDS: COZAAR PO (08:04)
[2024-04-15] MEDS: LOW STRENGTH ASPIRIN 81 MG PO (08:04)
[2024-04-15] MEDS: PLAVIX 75 MG PO (08:04)
[2024-04-15] MEDS: ZYLOPRIM 100 MG PO (08:05)
[2024-04-15] MEDS: VITAMIN D3 (cholecalciferol) 25 MCG PO (08:05)
[2024-04-15] MEDS: VITAMIN C 500 MG PO (08:05)
[2024-04-15] MEDS: TOPROL XL PO (08:05)
[2024-04-15] MEDS: VITAMIN B-12 1000 MCG PO (08:23)
[2024-04-15] MEDS: NORVASC PO (08:26)
--- NOTE | 2024-04-15 09:11 | W.PN.CARDCBS ---
Addendum entered and electronically signed by Wang Plata MD 04/15/24 10:21:
I saw and examined the patient.
The Borematic Operator's note was reviewed and I agree with the note.
Comment:
GEN: No distress, awake, Ox3
HEENT: supple, anicteric, mmm
LUNGS: scatt rhonchi
CV: Reg, S1/S2, / syst LSB, no gallop
ABD: soft, BS+, NT/ND
EXT: No edema
NEURO: Gross non-focal
SKIN: No rash
Plan:
Cath results reviewed. Con't Toprol. Decrease Cozaar to 25mg po bid
Continue amlodipine for severe CAD. Attempting to treat coronary artery disease medically.
Blood pressure is marginal we will need to follow.
Continue aspirin, Plavix, Crestor, and Zetia.
LDL was 77. Encourage compliance with Crestor and Zetia.
Original Note:
Today's Communication / Plan
-
Hold tonight's dose of losartan and decreased to 25 mg BID starting tomorrow
Cont Toprol XL and amlodipine
OOB more today and d/c to home tomorrow if stable
51 min coordination of care and face to face
Impression / Plan
-
PCP: Dr. Gabriella Mireles but most recently, Dr. Antonella Sanders, [facility]
Box Attacher: Dr. Bansal[facility] however most recently Dr. Buzz Quintanilla at [facility]
Impression:
Admitted with chest tightness, shortness of breath, back pain 04/11/2024
NSTEMI
Abnormal troponin
CAD
RCA stent 1994
2 stents 1995, 1 stent 2000, 1 stent 2002, 2 stents 2003
Status post CABG x 3 with CONTE-LAD, SVG-PDA, SVG->Diag 11/2006
Multiple coronary interventions; PCI in 90s
last STEMI/PCI at [facility], SVG to diagonal stented with 3.5 mm Xience KATERINA, SVG to RCA stented with 4 mm Xience KATERINA in the mid portion and a 4 mm Xience KATERINA in the prox portion 03/23/19
Hypertension
Hyperlipidemia
Statin intolerance
Type 2 diabetes
Ascending aortic aneurysm (4.6 cm; follows with Dr. Bernabe Norman)
AAA (CTA 09/17/23: up to 5 cm with moderate ulcerated mural thrombus; follows with Dr. Radha Escalera and Dr Bernabe Norman)
Recommendation from his evaluation at [facility] was to repeat CT scan in 1 year, trigger for surgery would be >5.5 cm or growth > 0.5 cm
Remote DVT
Prostate cancer with hormone therapy
History of spontaneous pneumothorax 2006
GERD
TIA
Recent diagnosis of lung cancer
Obstructive sleep apnea on CPAP
Spinal stenosis with prior laminectomy
Carotid stenosis
SDH after traumatic fall
14-day ambulatory monitor completed 10/20/2023: Sinus rhythm, heart rate range 39 to 174 bpm with average 62 bpm. No atrial fibrillation, advanced heart block or prolonged pauses. Occasional PVCs 3.6%, PVC less than 1%. Intermittent bundle branch
block. 19 supraventricular tachycardia runs with fastest lasting 6 beats at max heart rate 174 bpm, longest 18 beats with average heart rate of 120 bpm
Lexiscan nuclear stress test 07/20/2023 ([facility]): No perfusion defects, LV perfusion is negative for ischemia, EF 63%
PET CT scan February 04, 2024: Right middle lobe groundglass nodular measuring up to 2.9 cm, unchanged since 02/20/2023. Additionally an outside report documents this lesion measuring up to 2.9 cm dating back to at least November 04, 2019. There is
no identifiable solid component to today's examination, likely due to differences in technique. This lesion demonstrates FDG uptake less than blood pool in keeping with an adenocarcinoma spectrum lesion. Recommendation is continued surveillance
with chest CT until 5 years stability has been reached.
Echo 07/20/2023 ([facility]) EF 60 to 65%. Stage I DD. Normal RV size and function. Mild MAC, mild aortic sclerosis without stenosis. Ascending aorta mildly dilated at 4.1 cm
ECHO 04/11/24 ([place]): Normal LV size and function, LVEF 60-65%. There is inferior apex and septal apex hypokinesis/akinesis. There is mild AI, mild TR. Mildly dilated aortic root, 4.4 cm at the sinus Valsalva
Plan:
-Patient underwent cardiac cath at 04/14/24 and the CONTE to LAD was widely patent, SVG to distal RCA with diffuse up to 70 to 80% in-stent restenosis in the proximal to mid vein graft to distal RCA and the SVG appearing ectatic with diffuse
moderate CAD. SVG to diagonal could not be engage and is possibly now occluded, significant [place] CAD including 80 to 90% stenosis in the OM1 and 70 to 75% long stenosis in OM 2. Current plan is for optimization of medical therapy and if patient
is refractory could consider PCI to OM1 versus PCI to the in-stent proximal to mid SVG to RCA restenosis
-Outpatient doses of aspirin and Plavix have been continued.
-Outpatient dose of Toprol XL 25 mg BID
-Outpatient dose of losartan 50 mg BID has been continued with doses intermittently held for SBP less than 100. Will hold losartan 04/15/24 PM dose and then lower dose to 25 mg BID in AM.
-New to amlodipine 5 mg daily this admission
-Patient was not taking a statin just prior to admission, it sounds as though he had been having myalgias and stopped statin. We added back Crestor 10 mg daily and Zetia 10 mg daily. LDL cholesterol 77
-Ascending aortic aneurysm 4.6 cm, AAA 5 cm with moderate ulcerated mural thrombus by CTA 09/17/23. Following at [place] with Dr. Radha Escalera approximately 1 week ago abdominal aortic ultrasound suggested growth of the AAA and he is scheduled for repeat
CTA at [place] next week
-Hgb stable at 11.4
-Overnight sinus bradycardia without heart block in the setting of known JUAN and he reports he was wearing CPAP at the time.
-HgbA1c 6.1%
-Patient says he was diagnosed with lung cancer and had PET scan at [place] 02/04/24 that showed stable size adenocarcinoma spectrum lesion where surveillance is recommended until 5 years of stability has been reached.
-Increased OOB and activity 04/15/24 and if no chest pain or lightheadedness then d/c to home in AM
HPI 04/11/2023: Patient is an 83-year-old male with past medical history significant for CABG x 3 11/2006, multiple coronary interventions which he reports he has 10 or 11 stents with last intervention 3 or 4 years ago, hypertension, hyperlipidemia,
diabetes, TIA, prostate cancer with hormone therapy, pneumothorax, GERD, 'brain bleed after traumatic fall several years ago', DVT, AAA and recent diagnosis of lung cancer on PET scan who presents to [place] emergency department 04/11/2024 with
complaints of back and chest discomfort as well as shortness of breath. Patient followed with Dr. Peterson at [facility] but most recently with Dr. Buzz Quintanilla at [facility] for cardiology care as well as Dr. Bernabe Norman of CT
surgery [place] and Dr. Escalera of vascular surgery for AAA ([place]). He reports he has had intermittent chest and back discomfort for several days when he goes out in the cold. However this morning he reports his chest tightness and shortness of breath
were more persistent and occurred with minimal activity. He reports he took 2 Tylenol and 2 Naprosyn thinking it was from his chronic back pain however he got nauseous developed dry heaves became diaphoretic had chest pain and shortness of breath
and decided to come to [facility] emergency department for treatment. Initial troponin was 0.398 and EKG showed sinus rhythm with nonspecific ST-T wave abnormality. Repeat troponin 1.57 and patient continues to have mild chest discomfort.
He started on heparin drip with bolus and given aspirin 325 mg plus sublingual nitroglycerin with some improvement. Patient now on nitroglycerin drip with almost complete resolution of chest pain. Patient is maintained on Plavix as outpatient.
He has a history of statin intolerance and has used Zetia in the past.
Progress Note - Box Attacher
Subjective
Date of Service: April 15, 2024
Denies chest pain
Objective
Labs:
04/15/24 02:47
04/15/24 02:47
Labs
Hgb 11.4 g/dL (13.0-18.0) L 04/15/24 02:47
Hct 33.3 % (39.0-52.0) L 04/15/24 02:47
Plt Count 211 10^3/uL (130-400) 04/15/24 02:47
APTT 100.9 Sec (23.4-35.0) H 04/14/24 04:47
Sodium 137 mmol/L (135-145) 04/15/24 02:47
Potassium 4.1 mmol/L (3.5-5.1) 04/15/24 02:47
BUN 24 mg/dl (9-20) H 04/15/24 02:47
Creatinine 0.9 mg/dL (0.7-1.3) 04/15/24 02:47
Glucose 86 mg/dl (70-99) 04/15/24 02:47
Troponins
04/12/24 04/12/24 04/13/24
10:09 15:45 04:55
Troponin I 12.600 H* Cancelled 6.600 H*
Vital Signs and I&O:
Vital Signs
Temp Pulse Resp BP Pulse Ox
98.3 F 67 18 91/50 100
04/15/24 07:00 04/15/24 08:05 04/15/24 07:00 04/15/24 08:05 04/15/24 07:00
Vital Signs
Temp Pulse Resp BP Pulse Ox
98.3 F 67 18 91/50 100
04/15/24 07:00 04/15/24 08:05 04/15/24 07:00 04/15/24 08:05 04/15/24 07:00
Intake & Output
04/13/24 04/14/24 04/15/24 04/16/24
06:59 06:59 06:59 06:59
Intake Total 312 / 312 156 / 156 480 / 480
Output Total 850 / 850 1125 / 1125 300 / 300
Balance -538 / -538 -969 / -969 180 / 180
Physical Exam
Physical Exam
GEN: AAOx3
HEENT: MMM
LUNGS: RA. No audible wheeze
CV: SR on tele
ABD: ND
EXT: No edema B/L
NEURO: Gross non-focal
SKIN: No rash
--- NOTE | 2024-04-15 11:41 | CM ---
Reviewed chart. Met with Mr. Rivera to review discharge plans. He states he is feeling well and maybe able to go home soon. We reviewed VNA Services and he would like [facility]. Telephone call to [facility] Intake to make
the referral. Sent referral. Awaiting to hear if they can accept the referral. Prior to admission he resides with his spouse in a two story home with two steps to enter. He has a first floor set-up. Prior to admission he was independent with ADL's
and uses a single point cane to ambulate. He has a single point cane and bi-pap machine at home. He has a prescription plan and uses [facility]. Medical work-up in progress. The discharge plan is to return home with his spouse and [place]
[facility] when medically stable.
--- NOTE | 2024-04-15 11:55 | PTCARENOTE ---
Discussed all nursing measures prior to implementation. Discussed all meds w/ pt. Encouraged questions. Will monitor.
[2024-04-15] MEDS: ZETIA 10 MG PO (12:13)
[2024-04-15] MEDS: CRESTOR 10 MG PO (17:20)
[2024-04-15] MEDS: TOPROL XL 25 MG PO (20:11)
[2024-04-15] MEDS: CASODEX 50 MG PO (22:38)
[2024-04-15] MEDS: ARICEPT 10 MG PO (22:38)
[2024-04-15] MEDS: FLOMAX 0.4 MG PO (22:38)
[2024-04-15] MEDS: AMBIEN 2.5 MG PO (22:39)
[2024-04-16 04:43] VITALS: BP 110/69
[2024-04-16 05:18] LABS: Hematocrit 32.8 % (39.0-52.0); Hemoglobin 11.2 g/dL (13.0-18.0); Mean Corp Hgb Conc. 34.1 g/dL (33.0-37.0); Mean Corpuscular Volume 93.7 fL (80.0-94.0); Mean Platelet Volume 10.6 fL (7.4-10.4); Platelet Count 185 10^3/uL (130-400); Red Cell Dist. Width 12.5 % (11.5-14.5)
[2024-04-16 05:50] LABS: Blood Urea Nitrogen 24 mg/dl (9-20); Carbon Dioxide 25 mmol/L (22-30); Chloride 103 mmol/L (98-107); Estimated Creatinine Clearance 57 ml/min; Glucose 103 mg/dl (70-99); Magnesium 1.9 mg/dl (1.6-2.3); Potassium 4.4 mmol/L (3.5-5.1); Sodium 136 mmol/L (135-145); eGFR > 60.00
[2024-04-16 06:00] VITALS: BMI 22.5
[2024-04-16 07:13] VITALS: BP 111/44
[2024-04-16] MEDS: COZAAR 25 MG PO (09:02)
[2024-04-16] MEDS: PLAVIX 75 MG PO (09:03)
[2024-04-16] MEDS: LOW STRENGTH ASPIRIN 81 MG PO (09:03)
[2024-04-16] MEDS: TOPROL XL 25 MG PO (09:03)
[2024-04-16] MEDS: VITAMIN C 500 MG PO (09:04)
[2024-04-16] MEDS: ZYLOPRIM 100 MG PO (09:04)
[2024-04-16] MEDS: ZETIA 10 MG PO (09:04)
[2024-04-16] MEDS: VITAMIN B-12 1000 MCG PO (09:04)
[2024-04-16] MEDS: VITAMIN D3 (cholecalciferol) 25 MCG PO (09:04)
--- NOTE | 2024-04-16 09:04 | CM ---
Reviewed chart. Met with Mr. Rivera to review discharge plans. He states he is feeling well. We reviewed that [facility] Intake can accept the referral.. Prior to admission he resides with his spouse in a two sot ry home with two steps
to enter. He has a first floor set-up. Prior to admission he was independent with adl's and uses a single point cane for ambulation. He has a single point cane and bi-pap machine at home. He has a prescription plan and uses [facility]. Medial
work-up in progress. The discharge plan is to return home with his spouse and [facility] when medically stable.
[2024-04-16] MEDS: NORVASC 5 MG PO (09:05)
[2024-04-16] MEDS: FLUSH (NSS) 2 FLUSH IV (09:05)
--- NOTE | 2024-04-16 10:01 | W.PN.CARDCBS ---
Addendum entered and electronically signed by Wang Plata MD 04/16/24 12:18:
I saw and examined the patient.
The Behavioral Psychologist's note was reviewed and I agree with the note.
Comment:
GEN: No distress, awake, Ox3
HEENT: supple, anicteric, mmm
LUNGS: CTA, no wheezes/rales
CV: Reg, S1/S2, 1/6 syst LSB, no gallop
ABD: soft, BS+, NT/ND
EXT: No edema
NEURO: Gross non-focal
SKIN: No rash
Plan:
Overall doing better. Plan is for medical therapy of severe CAD. Continue amlodipine. Continue lower dose of losartan 25 p.o. twice daily.
Continue aspirin, Plavix, Crestor, Toprol, and Zetia.
OK for D/C
Original Note:
Today's Communication / Plan
-
Patient given paper copies of last cath at [facility] and here at this admission to help with continuity of care as he likes goes to multiple healthcare systems
Stable for d/c with addition of amlodipine for medical management of CAD
Impression / Plan
-
PCP: Dr. Gabriella Mireles but most recently, Dr. Antonella Sanders, [facility]
Medical Lab Technician: Dr. Peterson [facility] however most recently Dr. Buzz Quintanilla at [facility]
Impression:
Admitted with chest tightness, shortness of breath, back pain 04/11/2024
NSTEMI
Abnormal troponin
CAD
RCA stent 1994
2 stents 1995, 1 stent 2000, 1 stent 2002, 2 stents 2003
Status post CABG x 3 with CONTE-LAD, SVG-PDA, SVG->Diag 11/2006
Multiple coronary interventions; PCI in 90s
last STEMI/PCI at [facility], SVG to diagonal stented with 3.5 mm Xience KATERINA, SVG to RCA stented with 4 mm Xience KATERINA in the mid portion and a 4 mm Xience KATERINA in the prox portion 03/23/19
Hypertension
Hyperlipidemia
Statin intolerance
Type 2 diabetes
Ascending aortic aneurysm (4.6 cm; follows with Dr. Bernabe Norman)
AAA (CTA 09/17/23: up to 5 cm with moderate ulcerated mural thrombus; follows with Dr. Radha Escalera and Dr Bernabe Norman)
Recommendation from his evaluation at [facility] was to repeat CT scan in 1 year, trigger for surgery would be >5.5 cm or growth > 0.5 cm
Remote DVT
Prostate cancer with hormone therapy
History of spontaneous pneumothorax 2006
GERD
TIA
Recent diagnosis of lung cancer
Obstructive sleep apnea on CPAP
Spinal stenosis with prior laminectomy
Carotid stenosis
SDH after traumatic fall
14-day ambulatory monitor completed 10/20/2023: Sinus rhythm, heart rate range 39 to 174 bpm with average 62 bpm. No atrial fibrillation, advanced heart block or prolonged pauses. Occasional PVCs 3.6%, PVC less than 1%. Intermittent bundle branch
block. 19 supraventricular tachycardia runs with fastest lasting 6 beats at max heart rate 174 bpm, longest 18 beats with average heart rate of 120 bpm
Lexiscan nuclear stress test 07/20/2023 ([facility]): No perfusion defects, LV perfusion is negative for ischemia, EF 63%
PET CT scan February 04, 2024: Right middle lobe groundglass nodular measuring up to 2.9 cm, unchanged since 02/20/2023. Additionally an outside report documents this lesion measuring up to 2.9 cm dating back to at least November 04, 2019. There is
no identifiable solid component to today's examination, likely due to differences in technique. This lesion demonstrates FDG uptake less than blood pool in keeping with an adenocarcinoma spectrum lesion. Recommendation is continued surveillance
with chest CT until 5 years stability has been reached.
Echo 07/20/2023 ([facility]) EF 60 to 65%. Stage I DD. Normal RV size and function. Mild MAC, mild aortic sclerosis without stenosis. Ascending aorta mildly dilated at 4.1 cm
ECHO 04/11/24 ([place]): Normal LV size and function, LVEF 60-65%. There is inferior apex and septal apex hypokinesis/akinesis. There is mild AI, mild TR. Mildly dilated aortic root, 4.4 cm at the sinus Valsalva
Plan:
-BP improved with lower dose of losartan 25 mg BID.
-Outpatient dose of Toprol XL 25 mg BID has been continued
-New to amlodipine 5 mg daily this admission
-Outpatient doses of aspirin and Plavix have been continued.
-Patient was not taking a statin just prior to admission, it sounds as though he had been having myalgias and stopped statin. We added back Crestor 10 mg daily and Zetia 10 mg daily. LDL cholesterol 77
-Patient underwent cardiac cath at 04/14/24 and the CONTE to LAD was widely patent, SVG to distal RCA with diffuse up to 70 to 80% in-stent restenosis in the proximal to mid vein graft to distal RCA and the SVG appearing ectatic with diffuse
moderate CAD. SVG to diagonal could not be engage and is possibly now occluded, significant [place] CAD including 80 to 90% stenosis in the OM1 and 70 to 75% long stenosis in OM 2. Current plan is for optimization of medical therapy and if patient
is refractory could consider PCI to OM1 versus PCI to the in-stent proximal to mid SVG to RCA restenosis
-No chest pain with ambulating in the unit
-Ascending aortic aneurysm 4.6 cm, AAA 5 cm with moderate ulcerated mural thrombus by CTA 09/17/23. Following at [place] with Dr. Radha Escalera approximately 1 week ago abdominal aortic ultrasound suggested growth of the AAA and he is scheduled for repeat
CTA at [place] next week
-Hgb stable at 11.2
-HgbA1c 6.1%
-Patient says he was diagnosed with lung cancer and had PET scan at [place] 02/04/24 that showed stable size adenocarcinoma spectrum lesion where surveillance is recommended until 5 years of stability has been reached.
-Patient was given paper copies of his cardiac at and also his last cath at [facility] in 2020 to help with continuity of care although patient says his plans are to continue to come to for admissions and to Dr. Peterson at [facility] vascular or
[place] for daytime outpatient cardiology care, patient no longer wants to go to [facility].
HPI 04/11/2023: Patient is an 83-year-old male with past medical history significant for CABG x 3 11/2006, multiple coronary interventions which he reports he has 10 or 11 stents with last intervention 3 or 4 years ago, hypertension, hyperlipidemia,
diabetes, TIA, prostate cancer with hormone therapy, pneumothorax, GERD, 'brain bleed after traumatic fall several years ago', DVT, AAA and recent diagnosis of lung cancer on PET scan who presents to [place] emergency department 04/11/2024 with
complaints of back and chest discomfort as well as shortness of breath. Patient followed with Dr. Peterson at [facility] but most recently with Dr. Buzz Quintanilla at [facility] for cardiology care as well as Dr. Bernabe Norman of CT
surgery [place] and Dr. Escalera of vascular surgery for AAA ([place]). He reports he has had intermittent chest and back discomfort for several days when he goes out in the cold. However this morning he reports his chest tightness and shortness of breath
were more persistent and occurred with minimal activity. He reports he took 2 Tylenol and 2 Naprosyn thinking it was from his chronic back pain however he got nauseous developed dry heaves became diaphoretic had chest pain and shortness of breath
and decided to come to [facility] emergency department for treatment. Initial troponin was 0.398 and EKG showed sinus rhythm with nonspecific ST-T wave abnormality. Repeat troponin 1.57 and patient continues to have mild chest discomfort.
He started on heparin drip with bolus and given aspirin 325 mg plus sublingual nitroglycerin with some improvement. Patient now on nitroglycerin drip with almost complete resolution of chest pain. Patient is maintained on Plavix as outpatient.
He has a history of statin intolerance and has used Zetia in the past.
Progress Note - Medical Lab Technician
Subjective
Date of Service: April 16, 2024
No chest pain
Objective
Labs:
04/16/24 04:52
04/16/24 04:52
Labs
Hgb 11.2 g/dL (13.0-18.0) L 04/16/24 04:52
Hct 32.8 % (39.0-52.0) L 04/16/24 04:52
Plt Count 185 10^3/uL (130-400) 04/16/24 04:52
APTT 100.9 Sec (23.4-35.0) H 04/14/24 04:47
Sodium 136 mmol/L (135-145) 04/16/24 04:52
Potassium 4.4 mmol/L (3.5-5.1) 04/16/24 04:52
BUN 24 mg/dl (9-20) H 04/16/24 04:52
Creatinine 1.0 mg/dL (0.7-1.3) 04/16/24 04:52
Glucose 103 mg/dl (70-99) H 04/16/24 04:52
Vital Signs and I&O:
Vital Signs
Temp Pulse Resp BP Pulse Ox
98.2 F 50 20 111/44 95
04/16/24 07:12 04/16/24 09:03 04/16/24 07:12 04/16/24 09:03 04/16/24 07:12
Vital Signs
Temp Pulse Resp BP Pulse Ox
98.2 F 50 20 111/44 95
04/16/24 07:12 04/16/24 09:03 04/16/24 07:12 04/16/24 09:03 04/16/24 07:12
Intake & Output
04/14/24 04/15/24 04/16/24 04/17/24
06:59 06:59 06:59 06:59
Intake Total 156 / 156 480 / 480
Output Total 1125 / 1125 300 / 300
Balance -969 / -969 180 / 180
Physical Exam
Physical Exam
GEN: AAOx3
HEENT: MMM
LUNGS: RA. No audible wheeze
CV: SR on tele
ABD: ND
EXT: No edema B/L
NEURO: Gross non-focal
SKIN: No rash
--- NOTE | 2024-04-16 10:31 | PTCARENOTE ---
Received patient this morning resting in bed, eating breakfast. Denies any chest pain or sob. Cath site left wrist is ecchymotic yellow and open to air with no signs of hematoma and strong pulse palpable. Patient concerned about his who is at
another hospital seeking medical care with his daughter. Patient seen by cardiology, anticipating possible discharge later today.
[2024-04-16 11:15] VITALS: BP 141/68
--- NOTE | 2024-04-16 11:16 | W.PN.HOSP.TC ---
Addendum entered and electronically signed by Lesly Valle MD 04/16/24 15:35:
total DC time 38 min
Original Note:
Today's Communication/Plan
-
see A/P
Assessment / Plan
Assessment / Plan
HPI: 83-year-old gentleman with past medical history notable for multiple coronary stents and history of coronary artery bypass grafting with reported CONTE-LAD and [id number]. He reported multiple stents by Dr. Devaughn Crook and most recent
stenting by Dr. Jose Manuel Pittman. He has a reported history of a large abdominal and thoracic aortic aneurysm that is being followed at the [facility] and reported history of a pulmonary mass that is being followed at the
[facility]. He has known carotid artery disease with prior TIA/CVA. Chronic back discomfort.
A/P:
# ACS/non-ST elevation myocardial infarction
# h/o Coronary artery disease status post CABG x3 with multiple PCI's
Troponin peaked at 16.4, now down trended
Echo with EF 60-65%. The inferoapex and septal apex appear hypokinetic to akinetic. Normal diastolic function.
Appreciate cardiology input
s/p heparin drip,
s/p cardiac catheterization 2/3: noted significant [place] coronary artery disease. Widely patent CONTE to LAD graft. Diffuse up to 70 to 80% in-stent restenosis in the proximal to mid SVG to the distal RCA with the saphenous vein graft appearing
ectatic with diffuse moderate CAD.
GDMT. Cont aspirin, Plavix, statin, losartan (lowered dose to 5 mg BID), metoprolol (25 mg BID)
Added amlodipine 5 mg daily this admission
Cleared by Card for DC
# Recent diagnosis of lung cancer
Outpatient follow-up at [place], confirmed with pt
# Obstructive sleep apnea
Continue CPAP
# Essential hypertension
Continue losartan, metoprolol, amlodipine
# Type 2 diabetes
A1C 6.1 %
resume DISTRICT ADMINISTRATOR metformin after discharge
cover with sliding scale insulin
# Abdominal aortic aneurysm
# Ascending aortic aneurysm
Outpatient surveillance
# Prostate cancer
Continue Casodex
# GERD
Continue PPI
# BPH
Continue Flomax
# Gout
Continue allopurinol
# Insomnia
Continue Ambien
DW card
Anticipated Discharge: Today
Subjective/Interval History
-
Date of Service: April 16, 2024
Objective Data
-
Labs:
Laboratory Results
04/16/24
04:52
WBC 7.0
Hgb 11.2 L
Hct 32.8 L
Plt Count 185
Sodium 136
Potassium 4.4
Chloride 103
Carbon Dioxide 25
BUN 24 H
Creatinine 1.0
Glucose 103 H
Calcium 9.0
Vital Signs:
Vital Signs
Temp Pulse Resp BP Pulse Ox
37.0 C 50 20 111/44 95
04/16/24 11:14 04/16/24 09:03 04/16/24 11:14 04/16/24 09:03 04/16/24 11:14
I&O
04/15/24 04/16/24 04/17/24
06:59 06:59 06:59
Intake Total 480 / 480
Output Total 300 / 300
Balance 180 / 180
Review of Systems
-
All other systems: Reviewed and negative
Physical Exam
-
General: Well Developed, Well Nourished, No Apparent Distress, Comfortable and Conversant; Negative Respiratory Distress
HEENT: Normocephalic, Atraumatic, Nose Appears Normal and Ears Appear Normal; Negative Oxygen
Respiratory: Clear to Auscultation and Non Labored Respirations; Negative Accessory Resp Muscle Use
Cardiac: Regular Rhythm and S1/S2
GI: Soft, Nontender, Nondistended and Normal Bowel Sounds
Skin: Warm and Dry
Neuro: Awake, Alert, Oriented and AO x 3
Psych: Calm and Intact Judgement/Insight
Data Reviewed
-
Labs: Labs Reviewed by me
--- NOTE | 2024-04-16 15:06 | PTCARENOTE ---
Reviewed discharge instructions with the patient and he states his understanding. Reviewed new prescriptions needed and follow up appointments. Patient discharged home with his daughter with VN services.
--- NOTE | 2024-04-16 15:16 | W.DCSUMMARY ---
Discharge Summary
Discharge Data
Date of Admission: 04/11/24
Date of Discharge: 04/16/24
-
Pending Results: No
Hospital Course
Principal Diagnosis:
Acute chest syndrome (ACS)/non-ST elevation myocardial infarction
Chronic Diagnoses:�
History of coronary artery disease status post multiple PCI's and CABG with reported CONTE-LAD and [id number].
Recent diagnosis of lung cancer. Outpatient follow-up at [place].
Obstructive sleep apnea on CPAP
Essential hypertension, on losartan, metoprolol, amlodipine
Type 2 diabetes. A1C 6.1 %
Abdominal aortic aneurysm
Ascending aortic aneurysm
Prostate cancer, continue Casodex
GERD
BPH, continue Flomax
Gout, continue allopurinol
Insomnia on Ambien
Consultations:�
Cardiology
Procedures:�
Cardiac catheterization 04/14: noted significant [place] coronary artery disease. Widely patent CONTE to LAD graft. Diffuse up to 70 to 80% in-stent restenosis in the proximal to mid SVG to the distal RCA with the saphenous vein graft appearing ectatic
with diffuse moderate CAD.
Clinical course:�
This is a 83-year-old man with past medical history as stated above, who presented with intermittent chest pain.
Problem 1:
ACS/non-ST elevation myocardial infarction in setting of several PCIs and CABG x3 in the past.
His troponin peaked at 16.4.
His Echo showed preserved EF 60-65%, the inferoapex and septal apex appear hypokinetic to akinetic, normal diastolic function.
He underwent cardiac catheterization on 04/14: noted significant [place] coronary artery disease. Widely patent CONTE to LAD graft. Diffuse up to 70 to 80% in-stent restenosis in the proximal to mid SVG to the distal RCA with the saphenous vein graft
appearing ectatic with diffuse moderate CAD.
He was recommended to continue medical management per cardiology: aspirin, Plavix, statin, losartan (lowered to 25 mg BID), metoprolol (at 25 mg BID), amlodipine at 5 mg daily.
He was cleared by cardiology for discharge to continue outpatient follow-up.
As for the rest of his medical problems, they were stable during his hospital stay.
Discharge Plan
-
Patient Disposition: Home with Home Care
Discharge Diagnosis/Procedures: Cardiac catheterization / noted significant [place] coronary artery disease. Widely patent CONTE to LAD graft. Diffuse up to 70 to 80% in-stent restenosis in the proximal to mid SVG to the distal RCA with the
saphenous vein graft appearing ectatic with diffuse moderate CAD.
Condition: Fair
Diet: As tolerated, Low Fat, Low Cholesterol and Low Sodium
Activity: As tolerated
Driving Restrictions: As prior to admission
Stand Alone Forms: DC Instructions- Cath/EP Lab
Referrals:
Buzz Quintanilla MD [Other] - in two to four weeks (Cardiology Followup )
[place] [Other]
PRIVATE,PHYSICIAN [Family Provider] - in less than 1 week
Marcos Peterson MD [Non-Admitting Privileges] - in two to three weeks
Prescriptions:
New
losartan 25 mg Tablet
25 mg PO BID Qty: 60 0RF
rosuvastatin 10 mg Tablet
10 mg PO QPM Qty: 30 0RF
Continued
metformin 500 mg Tablet
500 mg PO QPM
bicalutamide 50 mg Tablet
50 mg PO HS
donepezil 10 mg Tablet
10 mg PO HS
cyanocobalamin (vitamin B-12) 1,000 mcg Tablet
1,000 mcg PO DAILY
clopidogrel [Plavix] 75 mg Tablet
75 mg PO QPM
amlodipine [Norvasc] 5 mg Tablet
5 mg PO DAILY
allopurinol 100 mg Tablet
100 mg PO DAILY
aspirin 81 mg Tablet,Delayed Release (Dr/Ec)
81 mg PO DAILY
acetaminophen [Tylenol Extra Strength] 500 mg Tablet
1,000 mg PO DAILYPRN PRN (Reason: mild pain)
ascorbic acid (vitamin C) [Vitamin C] 500 mg Tablet
500 mg PO DAILY
naproxen sodium [Aleve] 220 mg Tablet
220 mg PO BIDPRN PRN (Reason: mild pain)
zolpidem [Ambien] 5 mg Tablet
2.5 mg PO HS
metoprolol succinate [Toprol XL] 25 mg Tablet Extended Release 24 Hr
25 mg PO BID
alfuzosin 10 mg Tablet Extended Release 24 Hr
10 mg PO HS
cholecalciferol (vitamin D3) [Vitamin D3] 25 mcg (1,000 unit) Tablet
25 mcg PO DAILY
omega [id number]-[id number]-fish oil [Fish Oil] 1,000 (120-180) mg Capsule
1 cap PO DAILY
turmeric 400 mg Capsule
400 mg PO DAILY
Discontinued
losartan 50 mg Tablet
50 mg PO BID
Discharge Orders:
Discharge Patient (As Directed); Ordered 04/16/24
Ordered By: Lesly Valle
Care Plan Goals
Care Plan Goals:
Problem: Readiness for enhanced knowledge related to diagnosis and treatment plan
Goal: Understand your diagnosis and treatment plan needs, including medications if applicable.
Instructions: Know your diagnosis, underlying causes and treatment plan options, including medications if applicable. Consult with your health care team to learn about your diagnosis and treatment plan, including medications if applicable.
Discharge Date and Time
Discharge Date/Time: 04/16/24 14:55
Print Language: SRI LANKAN
== END 2024-04-16 14:55 | disposition home health service (06) | DRG 281 ==
LOC: IVU 18:19
PROVIDERS: Emergency Medicine; Family Medicine; Internal Medicine Cardiovascular Disease; Internal Medicine Interventional Cardiology; Nurse Practitioner Family; Physician Assistant; ADMITTING PHYSICIAN Internal Medicine; ATTENDING PHYSICIAN Internal Medicine; EMERGENCY PHYSICIAN Emergency Medicine; OTHER PHYSICIAN Internal Medicine Interventional Cardiology
PROC: 4A023N7 Measurement of Cardiac Sampling and Pressure, Left Heart, Percutaneous Approach (ICD-10-PCS; 2024-04-14)
PROC: B2181ZZ Fluoroscopy of Left Internal Mammary Bypass Graft using Low Osmolar Contrast (ICD-10-PCS; 2024-04-14)
PROC: B2111ZZ Fluoroscopy of Multiple Coronary Arteries using Low Osmolar Contrast (ICD-10-PCS; 2024-04-14)
PROC: B2121ZZ Fluoroscopy of Single Coronary Artery Bypass Graft using Low Osmolar Contrast (ICD-10-PCS; 2024-04-14)
DX: I21.4 Non-ST elevation (NSTEMI) myocardial infarction (principal); C34.90 Malignant neoplasm of unspecified part of unspecified bronchus or lung; F02.818 Dementia in other diseases classified elsewhere, unspecified severity, with other behavioral disturbance; I47.10 Supraventricular tachycardia, unspecified; T82.855A Stenosis of coronary artery stent, initial encounter; I25.10 Atherosclerotic heart disease of native coronary artery without angina pectoris; I10 Essential (primary) hypertension; E11.9 Type 2 diabetes mellitus without complications; I71.40 Abdominal aortic aneurysm, without rupture, unspecified; C61 Malignant neoplasm of prostate; K21.9 Gastro-esophageal reflux disease without esophagitis; N40.0 Benign prostatic hyperplasia without lower urinary tract symptoms; M10.9 Gout, unspecified; G47.00 Insomnia, unspecified; G20.A1 Parkinson's disease without dyskinesia, without mention of fluctuations; Y83.1 Surgical operation with implant of artificial internal device as the cause of abnormal reaction of the patient, or of later complication, without mention of misadventure at the time of the procedure
CPT/HCPCS: 71046; 76937; 80048; 80053; 80061; 82962; 83036; 83735; 84484; 85025; 85027; 85730; 93005; 93306; 93459; 96365; 96366; 96375; 97162; 97166; 99152; 99153; 99285; C1894; Q9967